=== PATIENT | female | born 1995 | race Caucasian/White ===

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

== ENCOUNTER 2019-01-29 10:16 | Emergency (ER) | payer BC ==
--- NOTE | 2019-01-29 10:20 | ERPHSYRPT ---
- History of Present Illness Time Seen by Provider: 01/29/19 10:18 Source: patient Exam Limitations: no limitations Physician History: 23-year-old female at 8 weeks as of tomorrow presenting with nausea and vomiting states this has been a problem for several weeks Is not losing weight States last night it was uncontrolled and she had persistent vomiting throughout the evening She denies any abdominal pain vaginal bleeding lots of fluids diarrhea or fevers Patient states her manager community development gave her a prescription for an antiemetic 2 weeks ago but her insurance will not cover the medications so she has had nothing to take PMH: the patient denies chronic medical history Social:the patient denies tobacco Allergies/Adverse Reactions: No Known Drug Allergies Allergy (Verified 01/29/19 10:32) Hx Tetanus, Diphtheria Vaccination/Date Given: Yes Hx Influenza Vaccination/Date Given: No Hx Pneumococcal Vaccination/Date Given: No - Review of Systems Constitutional: No Fever, No Chills Eyes: No Symptoms Ears, Nose, & Throat: No Symptoms Respiratory: No Cough, No Dyspnea Cardiac: No Chest Pain, No Edema, No Syncope Abdominal/Gastrointestinal: Nausea, Vomiting, No Abdominal Pain, No Diarrhea, No Constipation Genitourinary Symptoms: Other (no vaginal bleeding or vaginal discharge), No Dysuria Musculoskeletal: No Back Pain, No Neck Pain Skin: No Rash Neurological: No Dizziness, No Focal Weakness, No Sensory Changes Psychological: No Symptoms Endocrine: No Symptoms All Other Systems: Reviewed and Negative - Past Medical History Pertinent Past Medical History: No Neurological History: No Pertinent History ENT History: No Pertinent History Cardiac History: No Pertinent History Respiratory History: No Pertinent History Endocrine Medical History: No Pertinent History Musculoskeletal History: No Pertinent History GI Medical History: No Pertinent History History: No Pertinent History Psycho-Social History: No Pertinent History - Past Surgical History Past Surgical History: Yes Neuro Surgical History: No Pertinent History Cardiac: No Pertinent History Respiratory: No Pertinent History Gastrointestinal: No Pertinent History Genitourinary: No Pertinent History Musculoskeletal: No Pertinent History Female Surgical History: No Pertinent History Other Surgical History: TONSILECTOMY - Social History Smoking Status: Never smoker Exposure to second hand smoke: No Alcohol Use: None Drug Use: none Patient Lives Alone: No Significant Family History: no pertinent family hx - Nursing Vital Signs Nursing Vital Signs: Initial Vital Signs Temperature 99.1 F 01/29/19 10:23 Pulse Rate 102 H 01/29/19 10:23 Respiratory Rate 20 01/29/19 10:23 Blood Pressure 133/88 01/29/19 10:23 Pain Scale Pain Intensity 0 - Physical Exam General Appearance: no apparent distress, alert Eye Exam: PERRL/EOMI, eyes nml inspection Ears, Nose, Throat Exam: normal ENT inspection, TMs normal, pharynx normal, moist mucous membranes Neck Exam: normal inspection, non-tender, supple, full range of motion Respiratory Exam: normal breath sounds, lungs clear, No respiratory distress Cardiovascular Exam: regular rate/rhythm, normal heart sounds, normal peripheral pulses Gastrointestinal/Abdomen Exam: soft, normal bowel sounds, No tenderness, No mass Back Exam: normal inspection, normal range of motion, No CVA tenderness, No vertebral tenderness Extremity Exam: normal inspection, normal range of motion, pelvis stable Neurologic Exam: alert, oriented x 3, cooperative, normal mood/affect, nml cerebellar function, nml station & gait, sensation nml, No motor deficits Skin Exam: normal color, warm, dry, No rash Lymphatic Exam: No adenopathy SpO2 Interpretation: normal O2 Delivery: Room Air Ordered Tests: Active Orders 24 hr Category Date Time Status CULTURE,URINE Stat Lab 01/29/19 10:23 Received UA W/RFX UR CULTURE Stat Lab 01/29/19 10:23 Completed Medication Summary Discontinued Medications Generic Name Dose Route Start Last Admin Trade Name Freq PRN Reason Stop Dose Admin Sodium Chloride 1,000 mls @ 999 mls/hr 01/29/19 10:26 01/29/19 10:45 Sodium Chloride 0.9% 1000 Ml IV 01/29/19 11:26 999 mls/hr .Q1H1M STA Administration Sodium Chloride Confirm 01/29/19 10:35 Sodium Chloride 0.9% 1000 Ml Administered 01/29/19 10:36 Dose 1,000 mls @ ud .ROUTE .STK-MED ONE Ondansetron HCl 4 mg 01/29/19 10:25 01/29/19 10:45 Zofran 4 Mg/2 Ml Vial IV 01/29/19 10:26 4 mg STAT ONE Administration Ondansetron HCl Confirm 01/29/19 10:35 Zofran 4 Mg/2 Ml Vial Administered 01/29/19 10:36 Dose 4 mg .ROUTE .STK-MED ONE Lab/Rad Data: Laboratory Results 01/29/19 Range/Units 10:23 Urine Color YELLOW (YELLOW) Urine Appearance CLOUDY (CLEAR) Urine pH 7.0 (5-6) Ur Specific [place] 1.015 (1.005-1.025) Urine Protein NEGATIVE (Negative) Urine Ketones NEGATIVE (NEGATIVE) Urine Blood NEGATIVE (0-5) Matt/ul Urine Nitrite NEGATIVE (NEGATIVE) Urine Bilirubin NEGATIVE (NEGATIVE) Urine Urobilinogen NEGATIVE (0-1) mg/dL Ur Leukocyte Esterase TRACE (NEGATIVE) Urine WBC (Auto) 0-2 (0-5) /HPF Urine RBC (Auto) NONE (0-2) /HPF U Epithel Cells (Auto) MODERATE (FEW) /HPF Urine Bacteria (Auto) FEW (NEGATIVE) /HPF Amorphous Crystals MODERATE (NEGATIVE) /HPF Urine Mucus (Auto) MODERATE (NEGATIVE) /HPF Urine Culture Reflexed YES (NO) Urine Glucose NEGATIVE (NEGATIVE) mg/dL - Progress Progress: unchanged Progress Note: patient feeling well. Nontoxic. Benign abdominal exam. No evidence of acute intra-abdominal process, most likely hyperemesis secondary to . No complications with apparent. Antiemetics given, and fluid bolus provided. Outpatient antiemetic therapy provided, followup with OB recommended. Patient voiced understanding return options at time of discharge. 01/29/19 14:12 - Departure Departure Disposition: Home Clinical Impression: Nausea & vomiting Qualifiers: Vomiting type: unspecified Vomiting Intractability: unspecified Qualified Code( s): R11.2 - Nausea with vomiting, unspecified Condition: Good Critical Care Time: No Referrals: FABIAN WEST [Primary Care Provider] - Instructions: Vomiting -- Adult Prescriptions: Ondansetron ODT 4 MG [Zofran Odt 4 mg] 4 mg PO Q6H PRN PRN 3 Days #6 tab.rapdis PRN Reason: Nausea
[2019-01-29] MEDS ORDERED: Sodium Chloride 0.9% 1000 ML 1,000 ML ONE (10:35)
[2019-01-29] MEDS ORDERED: Zofran 4 MG/2 ML VIAL ONE (10:35)
[2019-01-29] MEDS: Zofran 4 MG/2 ML VIAL IV ONE (10:45)
[2019-01-29] MEDS: Sodium Chloride 0.9% 1000 ML 1,000 ML IV STA (10:45)
[2019-01-29 11:09] VITALS: BP 120/73; O2SAT 100
[2019-01-29 11:18] LABS: Amourphous Crystal MODERATE /HPF (NEGATIVE); Appearance CLOUDY (CLEAR); Bacteria FEW /HPF (NEGATIVE); Bilirubin NEGATIVE (NEGATIVE); Blood NEGATIVE Ery/ul (0-5); Epithelial Cells MODERATE /HPF (FEW); Glucose NEGATIVE (NEGATIVE); Ketones NEGATIVE (NEGATIVE); Leukocyte Esterase TRACE (NEGATIVE); Mucus MODERATE /HPF (NEGATIVE); Nitrite NEGATIVE (NEGATIVE); Protein,Urine Dip NEGATIVE (Negative); Specific Gravity 1.015 (1.005-1.025); Urobilinogen NEGATIVE mg/dL (0-1); WBC 0-2 /HPF (0-5)
[2019-01-29 11:52] VITALS: PULSE 81
== END 2019-01-29 12:05 | disposition home or self-care (01) ==
LOC: ED 10:16
DX: R11.2 Nausea with vomiting, unspecified (principal); Z3A.08 8 weeks gestation of pregnancy
CPT/HCPCS: 36000; 81001; 87086; 96374; 99284; 99291; 99292; J2405

== ENCOUNTER 2019-07-08 19:14 | Observation (INO) | payer BC ==
[2019-07-08 20:49] VITALS: O2SAT 98
[2019-07-08] MEDS ORDERED: Klor Con 10 MEQ PO ONE (21:14)
[2019-07-08 21:17] LABS: Amphetamine,Urine NEGATIVE (NEGATIVE); Barbiturate,Urine NEGATIVE (NEGATIVE); Benzodiazepine,Urine NEGATIVE (NEGATIVE); Cocaine,Urine NEGATIVE (NEGATIVE); Methadone,Urine NEGATIVE (NEGATIVE); Opiate,Urine NEGATIVE (NEGATIVE); PCP,Urine NEGATIVE (NEGATIVE); THC,Urine NEGATIVE (NEGATIVE)
[2019-07-08] MEDS: Lactated Ringers 1,000 ML IV SCH (21:30)
[2019-07-08] MEDS: POTASSIUM CHLORIDE 20 mEq IN WATER 100ML 20 MEQ/100 ML BAG IV SCH ×2 (21:31→23:35)
[2019-07-09 05:50] LABS: ANION GAP 12.4 MEQ/L (5-15); CHLORIDE 106 mmol/L (98-107); Calcium 9.1 mg/dL (8.4-10.2); Carbon Dioxide 24 mmol/L (22-30); Creatinine 1 0.32 mg/dL (0.52-1.04); Glucose 100 mg/dL (74-106); SODIUM 140 mmol/L (137-145)
[2019-07-09 05:52] LABS: BLOOD UREA NITROGEN < 2 mg/dL (7-17)
[2019-07-09 05:53] LABS: Potassium 2.8 mmol/L (3.5-5.1)
[2019-07-09] MEDS ORDERED: Magnesium 1 Gm / 100 Ml D5W*** 100 ML IV ONE (06:01)
[2019-07-09] MEDS: POTASSIUM CHLORIDE 20 mEq IN WATER 100ML 20 MEQ/100 ML BAG IV SCH ×2 (06:11→08:43)
--- NOTE | 2019-07-09 08:33 | PCM.HP.ADD ---
Addendum to History & Physical - History & Physical Addendum Addendum to History & Physical: This certifies that the History & Physical in the electronic chart reflects the current health status of the patient. If there are changes in the H&P these changes/exceptions are listed as follows.
--- NOTE | 2019-07-09 08:39 | PCM.DS ---
Discharge Summary Date of Admission: 07/08/19 19:53 Admitting Physician: SONJA JAIMES Primary Care Provider: SONJA JAIMES Allergies Allergies No Known Drug Allergies Allergy (Verified 07/08/19 20:52) Hospital Summary - Hospital Course Hospital Course: PT is 23 yo at 30w 3d today, admitted directly last night with potassium of 2.4. Upon questioning, she had been having leg paresthesias, which are resolved this morning. Denies vomiting or diarrhea. Jessi po well. Last night her K+ only increased to 2.8 after IV and po potassium. Her Mg was borderline at 1.6 - this a.m. we are repleting the Mg and K+ and will recheck. If both are near nl will d/c pt to home. FHT have been reassuring throughout. Pt does have a WBC count of 20.7 - differential is pending. - Vitals & Intake/Output Vital Signs: Vital Signs Temperature 98.3 F 07/09/19 08:00 Pulse Rate 102 H 07/09/19 08:00 Respiratory Rate 18 07/09/19 08:00 Blood Pressure 118/67 07/09/19 08:00 O2 Sat by Pulse Oximetry 98 07/09/19 04:00 Intake & Output: Intake & Output 07/06/19 07/07/19 07/08/19 07/09/19 11:59 11:59 11:59 11:59 Intake Total 1765 Balance 1765 Weight 67.132 kg - Lab Result Diagrams: 07/09/19 04:10 Lab Results-Last 24 Hrs: Lab Results-Last 24 Hours 07/08/19 07/08/19 07/08/19 Range/Units 20:30 20:30 20:30 Sodium (137-145) mmol/L Potassium 2.6 L* (3.5-5.1) mmol/L Chloride (98-107) mmol/L Carbon Dioxide (22-30) mmol/L Anion Gap (5-15) MEQ/L BUN (7-17) mg/dL Creatinine (0.52-1.04) mg/dL Estimated GFR ML/MIN Glucose (74-106) mg/dL Calcium (8.4-10.2) mg/dL Magnesium 1.6 (1.6-2.3) mg/dL Urine Opiates Level NEGATIVE (NEGATIVE) Ur Methadone NEGATIVE (NEGATIVE) Urine Barbiturates NEGATIVE (NEGATIVE) Ur Phencyclidine (PCP) NEGATIVE (NEGATIVE) Urine Amphetamine NEGATIVE (NEGATIVE) U Benzodiazepine Level NEGATIVE (NEGATIVE) Urine Cocaine NEGATIVE (NEGATIVE) Urine Marijuana (THC) NEGATIVE (NEGATIVE) 07/09/19 07/09/19 Range/Units 04:10 04:10 Sodium 140 (137-145) mmol/L Potassium 2.8 L* (3.5-5.1) mmol/L Chloride 106 (98-107) mmol/L Carbon Dioxide 24 (22-30) mmol/L Anion Gap 12.4 (5-15) MEQ/L BUN < 2 L (7-17) mg/dL Creatinine 0.32 L (0.52-1.04) mg/dL Estimated GFR > 60.0 ML/MIN Glucose 100 (74-106) mg/dL Calcium 9.1 (8.4-10.2) mg/dL Magnesium 1.6 (1.6-2.3) mg/dL Urine Opiates Level (NEGATIVE) Ur Methadone (NEGATIVE) Urine Barbiturates (NEGATIVE) Ur Phencyclidine (PCP) (NEGATIVE) Urine Amphetamine (NEGATIVE) U Benzodiazepine Level (NEGATIVE) Urine Cocaine (NEGATIVE) Urine Marijuana (THC) (NEGATIVE) Discharge Exam General Appearance: no apparent distress, alert Neurologic Exam: oriented x 3, cooperative Eye Exam: eyes nml inspection Ears, Nose, Throat Exam: moist mucous membranes Neck Exam: normal inspection Respiratory Exam: normal breath sounds, lungs clear, No crackles/rales, No rhonchi, No wheezing Cardiovascular Exam: regular rate/rhythm, normal heart sounds, No murmur Gastrointestinal/Abdomen Exam: other (gravid) Skin Exam: normal color, warm, dry, No rash Final Diagnosis/Problem List - Final Discharge Diagnosis/Problem (1) Hypokalemia Current Visit: Yes Status: Acute Assessment & Plan: Unsure the etiology, but repleting Mg and K now. Will send her home on po supplements and recheck on Friday (3d). Code(s): E87.6 - HYPOKALEMIA (2) Current Visit: Yes Status: Chronic Assessment & Plan: stable. Code(s): Z34.90 - ENCNTR FOR SUPRVSN OF NORMAL , UNSP, UNSP TRIMESTER - Discharge Disposition: Home, Self-Care Condition: Stable Prescriptions: No Action Ondansetron ODT 4 MG [Zofran Odt 4 mg] 4 mg PO Q6H PRN PRN 3 Days #6 tab.rapdis PRN Reason: Nausea Vits W-Ca,Fe,FA(<1Mg) [] 1 tab PO DAILY Ferrous Sulfate 325 mg PO DAILY Aspirin 81 gm Chew [Baby Aspirin 81 mg Chew] 81 tab PO DAILY Follow up with: SONJA JAIMES [Primary Care Provider] - 1 Week
[2019-07-09] MEDS: Lactated Ringers 1,000 ML IV SCH (09:16)
[2019-07-09] MEDS ORDERED: ROCEPHIN 1 Gm-D5w 50 ml Bag** 1 G/50 ML IVPB IV ONE (14:00)
[2019-07-09 14:12] LABS: MAGNESIUM 1.7 mg/dL (1.6-2.3)
[2019-07-09 14:24] LABS: Potassium 2.9 mmol/L (3.5-5.1)
[2019-07-09] MEDS ORDERED: Klor Con 10 MEQ PO ONE (14:49)
[2019-07-09 20:06] VITALS: BP 125/82; PULSE 100
== END 2019-07-09 20:05 | disposition home or self-care (01) ==
LOC: OB 19:53
PROVIDERS: ADMIT Family Medicine; ATTEND Family Medicine
DX: O26.893 Other specified pregnancy related conditions, third trimester (principal); Z3A.30 30 weeks gestation of pregnancy; E87.6 Hypokalemia
CPT/HCPCS: 36415; 80048; 80307; 83735; 84132; 93012; G0378; J0696; J3475; J3480; A9270-GY

== ENCOUNTER 2019-08-11 09:58 | Observation (INO) | payer BC, OTHER ==
[2019-08-11 10:12] LABS: Appearance CLEAR (CLEAR); Bilirubin NEGATIVE (NEGATIVE); Dipstick done @ ? LFM; Glucose NEGATIVE (NEGATIVE); Ketones NEGATIVE (NEGATIVE); Nitrite NEGATIVE (NEGATIVE); Protein,Urine Dip NEGATIVE (Negative); RBC TRACE-INTACT Ery/ul (0-5); Specific Gravity 1.015 (1.005-1.025); Urobilinogen 0.2 mg/dL (0-1)
[2019-08-11 11:49] LABS: ALBUMIN 3.5 g/dL (3.5-5.0); ALKALINE PHOSPHATASE 145 U/L (38-126); ANION GAP 11.4 MEQ/L (5-15); CHLORIDE 103 mmol/L (98-107); Calcium 8.7 mg/dL (8.4-10.2); Carbon Dioxide 24 mmol/L (22-30); Creatinine 1 0.29 mg/dL (0.52-1.04); Glucose 91 mg/dL (74-106); MAGNESIUM 1.6 mg/dL (1.6-2.3); Potassium 3.1 mmol/L (3.5-5.1); SGOT/AST 20 U/L (14-36); SGPT/ALT 9 U/L (0-35); SODIUM 136 mmol/L (137-145); Total Protein 6.8 g/dL (6.3-8.2); Uric Acid 3.1 mg/dL (2.6-6.0)
[2019-08-11 11:54] LABS: BLOOD UREA NITROGEN 2 mg/dL (7-17)
[2019-08-11 12:03] VITALS: O2SAT 98
[2019-08-11 13:21] LABS: Absolute Neutrophil Ct (ANC) 10.08 (1.4-6.9); BASOPHIL % 0.3 % (0.0-0.4); Basophil (Absolute #) 0.04 (0-0.4); Eosinophil % 1.2 % (0.00-5.0); Eosinophil (Absolute #) 0.17 (0-0.5); Hematocrit 33.7 % (35-47); Hemoglobin 10.8 gm/dl (12.0-16.0); Lymphocyte (Absolute #) 1.87 (1.0-4.6); Lymphocytes % 13.5 % (24.0-44.0); Mean Cell Volume 91.1 fl (78-100); Mean Corpuscular Hemoglobin 29.2 pg (26-32); Mean Platelet Volume 10.3 fl (7.5-11.0); Monocyte (Absolute #) 1.69 (0.0-1.3); Monocytes % 12.2 % (0.0-12.0); Neutrophil % 72.8 % (36.0-66.0); Platelet Count 429 K/mm3 (150-450); Red Cell Distribution Width 14.3 % (11.5-14.0); White Blood Count 13.9 K/mm3 (4.0-10.5)
[2019-08-11 15:21] LABS: Slide Review 1 YES
[2019-08-11 16:01] VITALS: BP 132/87; PULSE 91
--- NOTE | 2019-08-11 22:21 | XRAY ---
Exam: Limited OB ultrasound from 08/11/2019. Comparison: OB ultrasound examination from 07/29/2019. Indication: Amniotic fluid index, well-being. Findings: The amniotic fluid index measured 12.50 cm which is within normal limits for this third trimester . Prior amniotic fluid index measured 17.2 cm on 07/29/2019. Impression: 1. As above.
== END 2019-08-11 14:45 | disposition home or self-care (01) ==
LOC: CLIN-LAKE 09:58 → OB 10:30
PROVIDERS: ADMIT Family Medicine; ATTEND Family Medicine
DX: Z34.03 Encounter for supervision of normal first pregnancy, third trimester (principal)
CPT/HCPCS: 36415; 59025; 76815; 80053; 81003; 83735; 84550; 85025; G0378

== ENCOUNTER 2019-08-18 09:10 | Inpatient (IN) | payer OTHER ==
[2019-08-18] MEDS ORDERED: BRETHINE 1 MG/ML SQ PRN (15:46)
[2019-08-18] MEDS ORDERED: Cervidil 10 MG VAG SCH ×2 (16:00→22:00)
[2019-08-18] MEDS ORDERED: Celestone Soluspan 6MG/ML IM SCH (16:00)
[2019-08-18 16:05] LABS: Hematocrit 33.3 % (35-47); Hemoglobin 10.6 gm/dl (12.0-16.0); Mean Corpuscular Hemoglobin 29.3 pg (26-32); Mean Corpuscular Hgb Concent. 31.8 g/dl (32-36); Mean Platelet Volume 10.3 fl (7.5-11.0); Platelet Count 386 K/mm3 (150-450); Red Blood Count 3.62 M/mm3 (4.1-5.4); Red Cell Distribution Width 14.4 % (11.5-14.0); White Blood Count 14.5 K/mm3 (4.0-10.5)
[2019-08-18 16:16] LABS: ALBUMIN 3.5 g/dL (3.5-5.0); ALKALINE PHOSPHATASE 133 U/L (38-126); ANION GAP 14.3 MEQ/L (5-15); CHLORIDE 104 mmol/L (98-107); Calcium 9.2 mg/dL (8.4-10.2); Carbon Dioxide 22 mmol/L (22-30); Creatinine 1 0.34 mg/dL (0.52-1.04); Glucose 129 mg/dL (74-106); Potassium 3.3 mmol/L (3.5-5.1); SGOT/AST 22 U/L (14-36); SGPT/ALT 11 U/L (0-35); SODIUM 137 mmol/L (137-145); Total Protein 6.6 g/dL (6.3-8.2); Uric Acid 3.5 mg/dL (2.6-6.0)
[2019-08-18 16:23] LABS: BLOOD UREA NITROGEN 2 mg/dL (7-17)
[2019-08-18 17:34] LABS: Amphetamine,Urine NEGATIVE (NEGATIVE); Barbiturate,Urine NEGATIVE (NEGATIVE); Benzodiazepine,Urine NEGATIVE (NEGATIVE); Cocaine,Urine NEGATIVE (NEGATIVE); Methadone,Urine NEGATIVE (NEGATIVE); Opiate,Urine NEGATIVE (NEGATIVE); PCP,Urine NEGATIVE (NEGATIVE); THC,Urine NEGATIVE (NEGATIVE)
[2019-08-18 20:33] LABS: Absolute Neutrophil Ct (ANC) 11.57 (1.4-6.9)
[2019-08-18 20:34] LABS: Lymphocytes 11 % (24-44); Monocyte 9 % (0.0-12.0); Neutrophils 80 % (36.0-66.0); Platelet Estimate NORMAL (NORMAL); Total Cells Counted 100
[2019-08-19] MEDS: Lactated Ringers 1,000 ML IV SCH ×3 (05:09→23:47)
[2019-08-19] MEDS ORDERED: OMNIPEN 2 GM ONE (05:35)
[2019-08-19] MEDS ORDERED: Sodium Chloride 100ML MINI-BAG PLUS 100 ML IV ONE (05:35)
[2019-08-19] MEDS ORDERED: TYLENOL EXTRA STRENGTH 500 MG PO PRN (06:30)
[2019-08-19] MEDS ORDERED: PITOCIN 30 UNITS/ LR 500 ML 500 ML IV SCH ×2 (06:30→16:00)
[2019-08-19] MEDS ORDERED: OMNIPEN 2 GM*** 2 G in Sodium Chloride 100ML MINI-BAG PLUS 100 ML IV ONE (06:30)
[2019-08-19] MEDS: OMNIPEN 1 GM*** 1 GM in Sodium Chloride 100ML MINI-BAG PLUS 100 ML IV SCH ×4 (10:00→23:07)
[2019-08-19] MEDS: MAG-OX 400 PO SCH ×2 (10:01→23:12)
[2019-08-19] MEDS: Klor Con 10 MEQ PO SCH ×2 (10:01→23:12)
[2019-08-19] MEDS ORDERED: Marcaine Spinal Ampul IJ ONE (10:37)
[2019-08-19] MEDS ORDERED: SUBLIMAZE 100 MCG/2 ML ONE (10:37)
[2019-08-19] MEDS ORDERED: Ephedrine Sulfate 50 MG/ML IV PRN (10:45)
[2019-08-19] MEDS ORDERED: Lactated Ringers 1,000 ML IV ONE (10:45)
[2019-08-19] MEDS ORDERED: OB EPIDURAL NAROPIN/SUFENTANIL IN NACL EPIDURAL PRN (10:45)
[2019-08-19] MEDS ORDERED: XYLOCAINE 1% HCL 20 ML MDV IJ PRN (15:34)
[2019-08-19] MEDS: Magnesium Sulfate 40 Gm/1000 Ml H2O Premix*** 1,000 ML IV SCH (20:40)
[2019-08-19] MEDS ORDERED: MORPHINE SULFATE 2 MG INJ IV ONE (21:54)
[2019-08-19] MEDS ORDERED: Mylicon 80MG PO PRN (22:14)
[2019-08-19] MEDS ORDERED: LANSINOH 40 GM TOP PRN (22:14)
[2019-08-19] MEDS ORDERED: Dermoplast Spray TP PRN (22:14)
[2019-08-19] MEDS ORDERED: TUCKS TP ONE (23:01)
[2019-08-19] MEDS ORDERED: TUCKS TP PRN (23:04)
[2019-08-19] MEDS: MOTRIN 400 MG PO PRN (23:38)
[2019-08-20] MEDS: NORCO 5/325 MG PO PRN ×3 (01:15→22:21)
[2019-08-20 02:04] VITALS: O2SAT 100
[2019-08-20 04:15] LABS: Hematocrit 32.2 % (35-47); Hemoglobin 10.3 gm/dl (12.0-16.0); Mean Cell Volume 91.7 fl (78-100); Mean Corpuscular Hemoglobin 29.3 pg (26-32); Mean Platelet Volume 10.1 fl (7.5-11.0); Platelet Count 402 K/mm3 (150-450); Red Blood Count 3.51 M/mm3 (4.1-5.4); Red Cell Distribution Width 14.8 % (11.5-14.0)
[2019-08-20 04:19] LABS: ANION GAP 10.7 MEQ/L (5-15); CHLORIDE 105 mmol/L (98-107); Calcium 7.7 mg/dL (8.4-10.2); Carbon Dioxide 23 mmol/L (22-30); Creatinine 1 0.33 mg/dL (0.52-1.04); Glucose 126 mg/dL (74-106); SODIUM 136 mmol/L (137-145)
[2019-08-20 04:24] LABS: White Blood Count 29.3 K/mm3 (4.0-10.5)
[2019-08-20 04:25] LABS: BLOOD UREA NITROGEN < 2 mg/dL (7-17); Potassium 2.9 mmol/L (3.5-5.1)
[2019-08-20] MEDS: MOTRIN 400 MG PO PRN ×2 (05:40→19:58)
[2019-08-20 07:17] LABS: BAND 11 % (0.0-2.0); Lymphocytes 4 % (24-44); Monocyte 11 % (0.0-12.0); Neutrophils 74 % (36.0-66.0); Total Cells Counted 100
[2019-08-20 07:18] LABS: Platelet Estimate NORMAL (NORMAL); Polychromasia RARE
[2019-08-20 07:20] LABS: Absolute Neutrophil Ct (ANC) 24.01 (1.4-6.9)
[2019-08-20] MEDS ORDERED: PHARMACY DOSING REQUIRED: GENTAMICIN IV ONE (07:51)
[2019-08-20] MEDS ORDERED: OMNIPEN 2 GM IV SCH (08:00)
[2019-08-20] MEDS: OMNIPEN 2 GM*** 2 G in Sodium Chloride 100ML MINI-BAG PLUS 100 ML IV SCH ×3 (08:17→20:22)
[2019-08-20] MEDS: GARAMYCIN INJ*** 120 MG in Sodium Chloride 0.9% 50 ML 50 ML IV SCH ×2 (09:01→17:02)
[2019-08-20] MEDS: Colace 100 MG PO SCH ×2 (09:50→22:08)
[2019-08-20] MEDS: Klor Con 10 MEQ PO SCH ×2 (09:50→22:08)
[2019-08-20] MEDS: FERREX 150 PO SCH (09:50)
[2019-08-20] MEDS: MAG-OX 400 PO SCH ×2 (09:50→22:08)
[2019-08-20] MEDS ORDERED: Klor Con 10 MEQ PO ONE (10:00)
[2019-08-20 12:13] LABS: Absolute Neutrophil Ct (ANC) 16.51 (1.4-6.9); BASOPHIL % 0.2 % (0.0-0.4); Basophil (Absolute #) 0.04 (0-0.4); Eosinophil % 0.5 % (0.00-5.0); Eosinophil (Absolute #) 0.11 (0-0.5); Hemoglobin 9.8 gm/dl (12.0-16.0); Lymphocyte (Absolute #) 2.58 (1.0-4.6); Lymphocytes % 11.5 % (24.0-44.0); Mean Corpuscular Hemoglobin 29.1 pg (26-32); Mean Corpuscular Hgb Concent. 31.6 g/dl (32-36); Mean Platelet Volume 9.5 fl (7.5-11.0); Monocyte (Absolute #) 3.23 (0.0-1.3); Monocytes % 14.4 % (0.0-12.0); Neutrophil % 73.4 % (36.0-66.0); Platelet Count 395 K/mm3 (150-450); Red Blood Count 3.37 M/mm3 (4.1-5.4); Red Cell Distribution Width 14.9 % (11.5-14.0); White Blood Count 22.5 K/mm3 (4.0-10.5)
[2019-08-20] MEDS: Lactated Ringers 1,000 ML IV SCH (12:53)
[2019-08-20] MEDS ORDERED: TUCKS TP PRN (13:04)
[2019-08-20 13:41] LABS: Slide Review 1 NO
[2019-08-20] MEDS: Magnesium Sulfate 40 Gm/1000 Ml H2O Premix*** 1,000 ML IV SCH (15:59)
[2019-08-21] MEDS: GARAMYCIN INJ*** 120 MG in Sodium Chloride 0.9% 50 ML 50 ML IV SCH (01:06)
[2019-08-21] MEDS: OMNIPEN 2 GM*** 2 G in Sodium Chloride 100ML MINI-BAG PLUS 100 ML IV SCH ×2 (01:49→09:19)
[2019-08-21] MEDS: Lactated Ringers 1,000 ML IV SCH (01:51)
[2019-08-21] MEDS: MOTRIN 400 MG PO PRN ×3 (03:17→20:41)
[2019-08-21] MEDS: NORCO 5/325 MG PO PRN ×4 (03:18→21:27)
[2019-08-21 03:39] LABS: Hematocrit 30.4 % (35-47); Hemoglobin 9.6 gm/dl (12.0-16.0); Mean Cell Volume 92.1 fl (78-100); Mean Corpuscular Hemoglobin 29.1 pg (26-32); Mean Corpuscular Hgb Concent. 31.6 g/dl (32-36); Mean Platelet Volume 10.1 fl (7.5-11.0); Platelet Count 422 K/mm3 (150-450); White Blood Count 19.1 K/mm3 (4.0-10.5)
[2019-08-21] MEDS ORDERED: TROUGH DRUG LEVELS IJ ONE (08:30)
[2019-08-21] MEDS ORDERED: PEAK DRUG LEVELS IJ ONE (10:00)
[2019-08-21] MEDS: FERREX 150 PO SCH (11:00)
[2019-08-21] MEDS: Colace 100 MG PO SCH ×2 (11:00→21:28)
[2019-08-21] MEDS: Klor Con 10 MEQ PO SCH ×2 (13:57→21:27)
[2019-08-21] MEDS: Augmentin 875-125 Tablet PO SCH ×2 (13:58→21:30)
[2019-08-21] MEDS: MAG-OX 400 PO SCH ×2 (13:58→21:28)
[2019-08-22] MEDS: NORCO 5/325 MG PO PRN ×2 (02:09→06:27)
[2019-08-22] MEDS: MOTRIN 400 MG PO PRN ×2 (03:39→10:39)
[2019-08-22 06:53] LABS: Absolute Neutrophil Ct (ANC) 9.59 (1.4-6.9); BASOPHIL % 0.3 % (0.0-0.4); Basophil (Absolute #) 0.04 (0-0.4); Eosinophil % 2.7 % (0.00-5.0); Eosinophil (Absolute #) 0.41 (0-0.5); Hematocrit 30.4 % (35-47); Hemoglobin 9.4 gm/dl (12.0-16.0); Lymphocyte (Absolute #) 2.93 (1.0-4.6); Lymphocytes % 19.5 % (24.0-44.0); Mean Cell Volume 93.8 fl (78-100); Mean Corpuscular Hgb Concent. 30.9 g/dl (32-36); Mean Platelet Volume 10.1 fl (7.5-11.0); Monocyte (Absolute #) 2.08 (0.0-1.3); Monocytes % 13.8 % (0.0-12.0); Neutrophil % 63.7 % (36.0-66.0); Platelet Count 426 K/mm3 (150-450); Red Blood Count 3.24 M/mm3 (4.1-5.4); Red Cell Distribution Width 14.8 % (11.5-14.0); White Blood Count 15.1 K/mm3 (4.0-10.5)
[2019-08-22 06:59] LABS: ANION GAP 12.7 MEQ/L (5-15); BLOOD UREA NITROGEN 8 mg/dL (7-17); CHLORIDE 103 mmol/L (98-107); Calcium 9.1 mg/dL (8.4-10.2); Carbon Dioxide 25 mmol/L (22-30); Creatinine 1 0.35 mg/dL (0.52-1.04); Glucose 77 mg/dL (74-106); SODIUM 137 mmol/L (137-145)
[2019-08-22 08:55] LABS: Slide Review 1 YES
[2019-08-22 09:05] VITALS: BP 135/82; PULSE 93
--- NOTE | 2019-08-22 10:32 | PCM.DS ---
Discharge Summary Date of Admission: 08/19/19 09:10 Admitting Physician: SONJA JAIMES Primary Care Provider: SONJA JAIMES Allergies Allergies No Known Drug Allergies Allergy (Verified 08/18/19 17:30) Hospital Summary - Hospital Course Hospital Course: Pt was admitted as 23 yo at 36w 1d for IOL due to pre-eclampsia with severe features. She was given cervadil followed by pitocin after AROM. Was treated with ampicillin for GBS unknown status. Delivered vigorous 6lb 14oz girl without complication. During labor, pt was put on Magnesium Sulfate due to elevated blood pressures; she remained on Mg for 36h total. Her bp have mostly been in the 120s-130s systolic, with a high over the past 24-36 h of 152 systolic. Has denied LUIS or visual changes. Pt has a history of hypokalemia and hypomagnesemia this ; is on po Mag ox and potassium. Her most recent potassium (this morning) was wnl. The morning after delivery she had a WBC count of 29,000 so was started on ampicillin and gentamycin for question of chorioamnionitis; pt has been afebrile throughout however. After 24h she was started on po augmentin but will not be sent home on any antibiotics. Pt is out of bed without dizziness. Bleeding is not heavy. She is alternating norco and ibuprofen for pain. She had marked labial edema after delivery (and a midline vaginal laceration repair, second degree) which she states has gone away now. She will be sent home on norco #10 and ibuprofen. She did have a BM this morning. - Vitals & Intake/Output Vital Signs: Vital Signs Temperature 97.9 F 08/22/19 08:30 Pulse Rate 93 H 08/22/19 08:30 Respiratory Rate 18 08/22/19 08:30 Blood Pressure 135/82 08/22/19 08:30 O2 Sat by Pulse Oximetry 100 08/20/19 00:30 Intake & Output: Intake & Output 08/19/19 08/20/19 08/21/19 08/22/19 11:59 11:59 11:59 11:59 Intake Total 1700 6504 8997 2700 Output Total 03525 46606 Balance 9333 -7253 -5417 2700 Weight 74.389 kg - Lab Result Diagrams: 08/22/19 05:05 08/22/19 05:05 Lab Results-Last 24 Hrs: Lab Results-Last 24 Hours 08/22/19 08/22/19 Range/Units 05:05 05:05 WBC 15.1 H (4.0-10.5) K/mm3 RBC 3.24 L (4.1-5.4) M/mm3 Hgb 9.4 L (12.0-16.0) gm/dl Hct 30.4 L (35-47) % MCV 93.8 (78-100) fl MCH 29.0 (26-32) pg MCHC 30.9 L (32-36) g/dl RDW 14.8 H (11.5-14.0) % Plt Count 426 (150-450) K/mm3 MPV 10.1 (7.5-11.0) fl Gran % 63.7 (36.0-66.0) % Eos # (Auto) 0.41 (0-0.5) Absolute Lymphs (auto) 2.93 (1.0-4.6) Absolute Monos (auto) 2.08 H (0.0-1.3) Lymphocytes % 19.5 L (24.0-44.0) % Monocytes % 13.8 H (0.0-12.0) % Eosinophils % 2.7 (0.00-5.0) % Basophils % 0.3 (0.0-0.4) % Absolute Granulocytes 9.59 H (1.4-6.9) Basophils # 0.04 (0-0.4) Sodium 137 (137-145) mmol/L Potassium 4.0 D (3.5-5.1) mmol/L Chloride 103 (98-107) mmol/L Carbon Dioxide 25 (22-30) mmol/L Anion Gap 12.7 (5-15) MEQ/L BUN 8 (7-17) mg/dL Creatinine 0.35 L (0.52-1.04) mg/dL Estimated GFR > 60.0 ML/MIN Glucose 77 (74-106) mg/dL Calcium 9.1 (8.4-10.2) mg/dL Slides for Path Review YES Micro Results-Entire Visit: Microbiology 08/19/19 12:30 Urine Culture - Final Catherized NO GROWTH Discharge Exam General Appearance: no apparent distress, alert Neurologic Exam: oriented x 3, cooperative, other (pat refl brisk bilat; 1 beat clonus bilat) Eye Exam: eyes nml inspection Ears, Nose, Throat Exam: moist mucous membranes Respiratory Exam: normal breath sounds, lungs clear, No crackles/rales, No rhonchi, No wheezing Cardiovascular Exam: regular rate/rhythm, normal heart sounds, No murmur Gastrointestinal/Abdomen Exam: soft, normal bowel sounds, other (fundus firm inferior to umbilicus) Extremity Exam: swelling (pretibial 1+ edema bilat) Final Diagnosis/Problem List - Final Discharge Diagnosis/Problem (1) Spontaneous vaginal delivery Current Visit: Yes Status: Acute Assessment & Plan: PPD #3, doing well, home today. Code(s): O80 - ENCOUNTER FOR FULL-TERM UNCOMPLICATED DELIVERY (2) Pre-eclampsia Current Visit: Yes Status: Acute Assessment & Plan: Improved; still having some occasional elevated BP. I let pt and SO know that if any BP > 160 systolic or >100 diastolic they need to call me CALI. Code(s): O14.90 - UNSPECIFIED PRE-ECLAMPSIA, UNSPECIFIED TRIMESTER (3) Hypomagnesemia Current Visit: Yes Status: Chronic Assessment & Plan: Seeing Dr. Dangelo next month. Code(s): E83.42 - HYPOMAGNESEMIA (4) Hypokalemia Current Visit: No Status: Chronic Code(s): E87.6 - HYPOKALEMIA - Discharge Disposition: Home, Self-Care Condition: Good Prescriptions: New Ibuprofen 800 mg PO TID PRN #35 tablet PRN Reason: Pain Potassium Chloride 10 Meq Tab* [Klor Con 10 MEQ] 40 meq PO BID #60 tab Hydrocodone/APAP 5-325 Tab^^^ [[place] 5-325 Tablet^^^] 1 each PO Q6H PRN #10 tablet MDD 4 PRN Reason: Severe Pain Continue Ondansetron ODT 4 MG [Zofran Odt 4 mg] 4 mg PO Q6H PRN PRN 3 Days #6 tab.rapdis PRN Reason: Nausea Vits W-Ca,Fe,FA(<1Mg) [] 1 tab PO DAILY Ferrous Sulfate 325 mg PO BID Aspirin 81 gm Chew [Baby Aspirin 81 mg Chew] 81 tab PO DAILY Magnesium Oxide 400 mg PO BID Discontinued Potassium Chloride 10 Meq Tab* [Klor Con 10 MEQ] 20 meq PO BID Additional Instructions: Call or go to ER/OB unit for any systolic (upper number) BP 160 or greater, or diastolic (lower number) 100 or greater, or if any severe headache, seeing spots , or severe pain in the right upper quadrant. Follow up with: SONJA JAIMES [Primary Care Provider] - 1 Week Forms: OB Discharge Instructions
[2019-08-22] MEDS: MAG-OX 400 PO SCH (10:39)
[2019-08-22] MEDS: Augmentin 875-125 Tablet PO SCH (10:40)
[2019-08-22] MEDS: Klor Con 10 MEQ PO SCH (10:40)
[2019-08-22] MEDS: Colace 100 MG PO SCH (10:41)
[2019-08-22] MEDS: FERREX 150 PO SCH (10:41)
[2019-08-22 12:12] LABS: ALBUMIN 3.6 g/dL (3.5-5.0); BILIRUBIN,TOTAL 0.5 mg/dL (0.2-1.3); Direct Bilirubin 0.1 mg/dL (0.0-0.4); Total Protein 6.7 g/dL (6.3-8.2)
== END 2019-08-22 12:50 | disposition home or self-care (01) | DRG 807 ==
LOC: OB 09:10 → OBSVTOIN 08-19 09:10
PROVIDERS: ADMIT Family Medicine; ATTEND Family Medicine
PROC: 10E0XZZ Delivery of Products of Conception, External Approach (ICD-10-PCS; principal; 2019-08-19)
PROC: 0KQM0ZZ Repair Perineum Muscle, Open Approach (ICD-10-PCS; 2019-08-19)
DX: O14.14 Severe pre-eclampsia complicating childbirth (principal); Z37.0 Single live birth; O71.4 Obstetric high vaginal laceration alone; Z3A.36 36 weeks gestation of pregnancy; D72.829 Elevated white blood cell count, unspecified; D64.9 Anemia, unspecified; E87.6 Hypokalemia; E83.42 Hypomagnesemia
CPT/HCPCS: 36415; 80048; 80053; 80076; 80170; 80307; 81003; 83735; 84132; 84550; 85025; 85027; 87086; 96372; G0378; J0290; J0702; J1580; J2270; J2590; J3010; A9270-GY

== ENCOUNTER 2020-07-29 00:29 | Emergency (ER) | payer OTHER ==
[2020-07-29 01:07] VITALS: BP 132/90; PULSE 99; O2SAT 97
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
== END 2020-07-29 01:34 | disposition home or self-care (01) ==
LOC: ED 00:29
DX: T74.11XA Adult physical abuse, confirmed, initial encounter (principal); S20.419A Abrasion of unspecified back wall of thorax, initial encounter; R10.9 Unspecified abdominal pain; S50.811A Abrasion of right forearm, initial encounter; Z3A.09 9 weeks gestation of pregnancy; Y04.0XXA Assault by unarmed brawl or fight, initial encounter; Y93.9 Activity, unspecified; Y92.89 Other specified places as the place of occurrence of the external cause
CPT/HCPCS: 99283

== ENCOUNTER 2020-08-02 20:53 | Emergency (ER) | payer OTHER ==
[2020-08-02 21:33] VITALS: O2SAT 99
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
[2020-08-03 00:19] VITALS: BP 110/66; PULSE 71
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
== END 2020-08-03 00:26 | disposition home or self-care (01) ==
LOC: ED 20:53
DX: S73.101A Unspecified sprain of right hip, initial encounter (principal); S20.212A Contusion of left front wall of thorax, initial encounter; Y04.0XXA Assault by unarmed brawl or fight, initial encounter; Z3A.09 9 weeks gestation of pregnancy
CPT/HCPCS: 71100; 73502; 99283

== ENCOUNTER 2021-02-21 14:19 | Observation (INO) | payer OTHER | END 2021-02-21 15:20 | disposition home or self-care (01) | LOC: OB 14:19 | PROVIDERS: ADMIT Obstetrics & Gynecology; ATTEND Obstetrics & Gynecology | DX: Z34.83 Encounter for supervision of other normal pregnancy, third trimester (principal); Z3A.38 38 weeks gestation of pregnancy | CPT/HCPCS: 84112; G0378 ==

== ENCOUNTER 2021-02-23 22:36 | Inpatient (IN) | payer OTHER ==
[2021-02-24] MEDS ORDERED: Zofran 4 MG/2 ML VIAL IV PRN (06:00)
[2021-02-24] MEDS ORDERED: OB EPIDURAL NAROPIN/SUFENTANIL IN NACL EPIDURAL PRN ×2 (06:00→07:00)
[2021-02-24] MEDS ORDERED: Ephedrine Sulfate 50 MG/ML IV PRN (06:00)
[2021-02-24] MEDS ORDERED: Lactated Ringers 1,000 ML IV ONE ×2 (06:00→07:00)
[2021-02-24] MEDS ORDERED: TYLENOL EXTRA STRENGTH 500 MG PO PRN (06:00)
[2021-02-24 07:09] LABS: Hematocrit 31.4 % (35-47); Hemoglobin 9.1 gm/dl (12.0-16.0); Mean Cell Volume 81.1 fl (78-100); Mean Corpuscular Hemoglobin 23.5 pg (26-32); Mean Platelet Volume 9.8 fl (7.5-11.0); Platelet Count 438 K/mm3 (150-450); Red Blood Count 3.87 M/mm3 (4.1-5.4); Red Cell Distribution Width 15.6 % (11.5-14.0); White Blood Count 13.4 K/mm3 (4.0-10.5)
[2021-02-24] MEDS ORDERED: FENTANYL 2 MCG-BUPIV 0.125%-NS 250 ML Epidur 250 ML EPIDURAL SCH (07:30)
[2021-02-24 07:44] LABS: ABO TYPING AB; Antibody Screen NEGATIVE (NEGATIVE); RH TYPING POSITIVE
[2021-02-24] MEDS ORDERED: XYLOCAINE 1% HCL 20 ML MDV IJ PRN (08:00)
[2021-02-24] MEDS ORDERED: BRETHINE 1 MG/ML SQ PRN (08:00)
[2021-02-24] MEDS ORDERED: PITOCIN 30 UNITS/ LR 500 ML 30 UNITS/500 ML PLAST..BAG IV SCH ×2 (08:00)
[2021-02-24 08:05] LABS: Eosinophil 1 % (0.00-3.0); Lymphocytes 19 % (24-44); Monocyte 3 % (0.0-12.0); Neutrophils 77 % (36.0-66.0); Total Cells Counted 100
[2021-02-24 08:06] LABS: Hypochromia 1+; Platelet Estimate NORMAL (NORMAL); Polychromasia 1+
[2021-02-24] MEDS: Lactated Ringers 1,000 ML IV SCH ×2 (08:31→21:53)
[2021-02-24 09:30] LABS: Amphetamine,Urine NEGATIVE (NEGATIVE); Barbiturate,Urine NEGATIVE (NEGATIVE); Benzodiazepine,Urine NEGATIVE (NEGATIVE); Cocaine,Urine NEGATIVE (NEGATIVE); Methadone,Urine NEGATIVE (NEGATIVE); Opiate,Urine NEGATIVE (NEGATIVE); PCP,Urine NEGATIVE (NEGATIVE); THC,Urine NEGATIVE (NEGATIVE)
[2021-02-24] MEDS ORDERED: Colace 100 MG ONE (19:32)
[2021-02-24] MEDS ORDERED: Dermoplast Spray ONE (19:32)
[2021-02-24] MEDS ORDERED: LANSINOH 40 GM ONE (19:32)
[2021-02-24] MEDS ORDERED: TUCKS TP ONE (19:32)
[2021-02-24] MEDS ORDERED: MOTRIN 400 MG ONE (19:32)
[2021-02-24] MEDS ORDERED: LANSINOH 40 GM TOP PRN (19:43)
[2021-02-24] MEDS ORDERED: Anucort-HC SUPPOSITORY PR PRN (19:43)
[2021-02-24] MEDS ORDERED: Dulcolax 10 MG SUPP PR PRN (19:43)
[2021-02-24] MEDS ORDERED: CORTISONE 1% CREAM TP PRN (19:43)
[2021-02-24] MEDS ORDERED: Mylicon 80MG PO PRN (19:43)
[2021-02-24] MEDS: TUCKS TP PRN (19:49)
[2021-02-24] MEDS: MOTRIN 400 MG PO PRN (19:49)
[2021-02-24] MEDS: Colace 100 MG PO SCH ×2 (19:49→21:41)
[2021-02-24] MEDS: Dermoplast Spray TP PRN (19:50)
[2021-02-25] MEDS: MOTRIN 400 MG PO PRN ×2 (05:04→22:04)
[2021-02-25 07:07] LABS: Absolute Neutrophil Ct (ANC) 10.77 (1.4-6.9); BASOPHIL % 0.3 % (0.0-0.4); Basophil (Absolute #) 0.04 (0-0.4); Eosinophil % 1.3 % (0.00-5.0); Eosinophil (Absolute #) 0.19 (0-0.5); Hematocrit 27.6 % (35-47); Hemoglobin 7.8 gm/dl (12.0-16.0); Lymphocyte (Absolute #) 2.14 (1.0-4.6); Lymphocytes % 14.2 % (24.0-44.0); Mean Cell Volume 81.4 fl (78-100); Mean Corpuscular Hgb Concent. 28.3 g/dl (32-36); Mean Platelet Volume 9.6 fl (7.5-11.0); Monocyte (Absolute #) 1.94 (0.0-1.3); Monocytes % 12.9 % (0.0-12.0); Neutrophil % 71.3 % (36.0-66.0); Platelet Count 353 K/mm3 (150-450); Red Blood Count 3.39 M/mm3 (4.1-5.4); Red Cell Distribution Width 15.8 % (11.5-14.0); White Blood Count 15.1 K/mm3 (4.0-10.5)
[2021-02-25 08:39] LABS: Slide Review 1 YES
[2021-02-25] MEDS: Colace 100 MG PO SCH ×2 (09:44→22:04)
[2021-02-25] MEDS ORDERED: FERREX 150 PO SCH (10:00)
--- NOTE | 2021-02-25 10:22 | PCM.NOTE ---
Date and Time: 02/25/21 1020 Subjective Assessment: PPD 1 PT RESTING IN BED AND DOING WELL VSS AFEBRILE ABD; SOFT UTERUS; FIRM' LOCHIA; MILD A/P SP PPD 1 WILL ANTICIPATE DISCHARGE TOMORROW FU OFFICE IN 3 WKS. OBJECTIVE DATA Vital Signs: Vital Signs - 24 hr Temp Pulse Resp BP BP Pulse Ox 02/25/21 08:00 98.3 F 79 18 115/76 98 02/25/21 04:00 98 F 81 17 111/70 98 02/25/21 00:00 98 F 84 17 109/64 97 02/24/21 20:00 98 F 101 H 17 119/74 98 02/24/21 14:45 98.2 F 94 H 18 128/71 02/24/21 14:15 98.2 F 108 H 18 124/66 02/24/21 14:00 101 H 18 127/67 02/24/21 13:45 97 H 18 128/63 02/24/21 13:30 123 H 18 124/66 02/24/21 13:04 98.2 F 94 H 18 02/24/21 13:00 98.2 F 111 H 18 137/82 02/24/21 12:45 98.2 F 112 H 18 128/83 98 02/24/21 12:30 98.2 F 110 H 18 137/79 98 02/24/21 12:15 98.2 F 110 H 18 137/79 98 02/24/21 12:00 98.2 F 94 H 18 133/84 98 02/24/21 11:30 98.2 F 100 H 18 133/89 98 02/24/21 11:29 98.2 F 94 H 18 122/69 98 02/24/21 11:00 98.2 F 85 18 122/73 98 02/24/21 10:45 98.2 F 85 18 122/73 98 02/24/21 10:30 98.2 F 97 H 18 122/69 98 Pain Assessment - Last Documented Pain Intensity [Bilateral 1 Lower] Pain Intensity 0 Pain Scale Used 0-10 Pain Scale Intake and Output: Intake & Output 02/22/21 02/23/21 02/24/21 02/25/21 11:59 11:59 11:59 11:59 Intake Total 980 Balance 980 Weight 165 kg Lab Results: Lab Results-Last 24 Hours 02/25/21 Range/Units 06:50 WBC 15.1 H (4.0-10.5) K/mm3 RBC 3.39 L (4.1-5.4) M/mm3 Hgb 7.8 L (12.0-16.0) gm/dl Hct 27.6 L (35-47) % MCV 81.4 (78-100) fl MCH 23.0 L (26-32) pg MCHC 28.3 L (32-36) g/dl RDW 15.8 H (11.5-14.0) % Plt Count 353 (150-450) K/mm3 MPV 9.6 (7.5-11.0) fl Gran % 71.3 H (36.0-66.0) % Eos # (Auto) 0.19 (0-0.5) Absolute Lymphs (auto) 2.14 (1.0-4.6) Absolute Monos (auto) 1.94 H (0.0-1.3) Lymphocytes % 14.2 L (24.0-44.0) % Monocytes % 12.9 H (0.0-12.0) % Eosinophils % 1.3 (0.00-5.0) % Basophils % 0.3 (0.0-0.4) % Absolute Granulocytes 10.77 H (1.4-6.9) Basophils # 0.04 (0-0.4) Slides for Path Review YES Assessment/Plan (1) Vaginal delivery Current Visit: Yes Status: Acute Code(s): O80 - ENCOUNTER FOR FULL-TERM UNCOMPLICATED DELIVERY
--- NOTE | 2021-02-25 10:25 | PCM.DS ---
Discharge Summary Date of Admission: 02/24/21 06:29 Admitting Physician: KATHRYN DICKENS DO Consults: Consults on Case 02/24/21 08:00 Notify Anesthesia Provider PRN 02/24/21 20:00 Notify Physician ROUTINE 02/25/21 08:52 Navigation ONCE Primary Care Provider: SONJA REYES Allergies Allergies No Known Drug Allergies Allergy (Verified 02/24/21 06:42) Hospital Summary - Hospital Course Hospital Course: PT ADMITTED ON FEB 24 FOR PITOCIN INDUCTION AND DELIVERED LIVE BABY GIRL WITHOUT COMPLICATION. DURING PERIOD DID WELL AND WAS NOTED HAVING DECREASED HGB 7.8 FROM 9.1 ON ADMISSION. STATES FEELING WELL AND WAS ADVISED TO TAKE IRON SUPPLEMENTATION UPON DISCHARGE. ALL QUESTIONS ANSWERED TO HER SATISFACTION. PT DENIES COMPLAINTS. - Vitals & Intake/Output Vital Signs: Vital Signs Temperature 98.3 F 02/25/21 08:00 Pulse Rate 79 02/25/21 08:00 Respiratory Rate 18 02/25/21 08:00 Blood Pressure 115/76 02/25/21 08:00 O2 Sat by Pulse Oximetry 98 02/25/21 08:00 Intake & Output: Intake & Output 02/22/21 02/23/21 02/24/21 02/25/21 11:59 11:59 11:59 11:59 Intake Total 980 Balance 980 Weight 165 kg - Lab Result Diagrams: 02/25/21 06:50 Lab Results-Last 24 Hrs: Lab Results-Last 24 Hours 02/25/21 Range/Units 06:50 WBC 15.1 H (4.0-10.5) K/mm3 RBC 3.39 L (4.1-5.4) M/mm3 Hgb 7.8 L (12.0-16.0) gm/dl Hct 27.6 L (35-47) % MCV 81.4 (78-100) fl MCH 23.0 L (26-32) pg MCHC 28.3 L (32-36) g/dl RDW 15.8 H (11.5-14.0) % Plt Count 353 (150-450) K/mm3 MPV 9.6 (7.5-11.0) fl Gran % 71.3 H (36.0-66.0) % Eos # (Auto) 0.19 (0-0.5) Absolute Lymphs (auto) 2.14 (1.0-4.6) Absolute Monos (auto) 1.94 H (0.0-1.3) Lymphocytes % 14.2 L (24.0-44.0) % Monocytes % 12.9 H (0.0-12.0) % Eosinophils % 1.3 (0.00-5.0) % Basophils % 0.3 (0.0-0.4) % Absolute Granulocytes 10.77 H (1.4-6.9) Basophils # 0.04 (0-0.4) Slides for Path Review YES Final Diagnosis/Problem List - Final Discharge Diagnosis/Problem (1) Vaginal delivery Current Visit: Yes Status: Acute Code(s): O80 - ENCOUNTER FOR FULL-TERM UNCOMPLICATED DELIVERY - Discharge Disposition: Home, Self-Care Condition: Stable Prescriptions: No Action Vits W-Ca,Fe,FA(<1Mg) [] 1 tab PO DAILY Nitrofurantoin Macro 100 mg [Macrobid 100MG Capsule] 100 mg PO BID Aspirin EC 81 mg [Ecotrin 81 mg] 81 mg PO BID Follow up with: SONJA REYES [Primary Care Provider] - KATHRYN DICKENS DO [ACTIVE STAFF] - 3 weeks
[2021-02-25] MEDS ORDERED: Adacel Vial IM ONE (13:00)
[2021-02-26] MEDS: TUCKS TP PRN (00:36)
[2021-02-26] MEDS: Dermoplast Spray TP PRN (02:49)
[2021-02-26 03:03] VITALS: O2SAT 97
[2021-02-26 04:00] LABS: HBsAg Screen Negative (Negative)
[2021-02-26 08:08] VITALS: BP 112/75; PULSE 88
== END 2021-02-26 11:10 | disposition home or self-care (01) | DRG 807 ==
LOC: OB 02-24 06:29 → UNDOADMOB 02-24 06:29 → OBSVTOIN 02-24 06:29
PROVIDERS: ADMIT Obstetrics & Gynecology; ATTEND Obstetrics & Gynecology
PROC: 0HQ9XZZ Repair Perineum Skin, External Approach (ICD-10-PCS; principal; 2021-02-24)
PROC: 10E0XZZ Delivery of Products of Conception, External Approach (ICD-10-PCS; 2021-02-24)
DX: O80 Encounter for full-term uncomplicated delivery (principal); Z37.0 Single live birth; Z3A.39 39 weeks gestation of pregnancy; D64.9 Anemia, unspecified
CPT/HCPCS: 36415; 59409; 80307; 85025; 86850; 86900; 86901; 87340; 90715; 96372; G0378; J2590; A9270-GY

== ENCOUNTER 2022-05-13 11:43 | Emergency (ER) | payer OTHER ==
[2022-05-13] MEDS ORDERED: Zofran 4 MG/2 ML VIAL IV ONE (11:54)
[2022-05-13] MEDS ORDERED: Sodium Chloride 0.9% 1000 ML 1,000 ML IV STA (11:54)
--- NOTE | 2022-05-13 11:54 | ERPHSYRPT ---
- History of Present Illness Time Seen by Provider: 05/13/22 11:54 Historian: patient Exam Limitations: no limitations Physician History: This is a 26-year-old white female patient of Dr. Rubio Nichols who also is being followed by pharmacy aide Dr. Garcia. Patient states that she has had intermittent vomiting for 2 days. Zofran ODT does not appear to be helping. Osmin jeronimo denies abdominal pain. She denies vaginal bleeding. Patient had an obstructive ultrasound on 05/07/2022 and there is a single viable intrauterine fetus that is approximately 8 weeks along. However, the patient was told by Dr. Garcia, that she is closer to 9 weeks along. Patient has appointment to see her pharmacy aide on 05/17/2022. Patient completed Macrodantin which she was taken for 1 week for a recent urinary tract infection. Patient has had some electrolyte abnormalities with prior pregnancies. Patient denies chest pain. She denies shortness of breath. Additional history was obtained from the patient's spouse as well as review of outside obstetric ultrasound. Timing/Duration: day(s) (2) Activities at Onset: none Severity of Pain-Max: none Severity of Pain-Current: none Modifying Factors: Improves With: vomiting Associated Symptoms: vomiting Previous symptoms: recently seen, recently treated Allergies/Adverse Reactions: No Known Drug Allergies Allergy (Verified 05/13/22 12:07) Home Medications: Vits W-Ca,Fe,FA(<1Mg) [] 1 tab PO DAILY 07/08/19 [History] Hx Tetanus, Diphtheria Vaccination/Date Given: Yes Hx Influenza Vaccination/Date Given: Yes Hx Pneumococcal Vaccination/Date Given: No Travel Risk - International Travel Have you traveled outside of the country in past 3 weeks: No - Coronavirus Screening Are you exhibiting any of the following symptoms?: No Symptoms: Vomiting/Diarrhea Close contact with a COVID-19 positive Pt in past 14-21 Days: No - Vaccine Status Have you recieved a Covid-19 vaccination: No - Review of Systems Constitutional: No Symptoms Eyes: No Symptoms Ears, Nose, & Throat: No Symptoms Respiratory: No Symptoms Cardiac: No Symptoms Abdominal/Gastrointestinal: Nausea, Vomiting, Appetite Changes, No Abdominal Pain, No Diarrhea, No Constipation Genitourinary Symptoms: No Symptoms Musculoskeletal: No Symptoms Skin: No Symptoms Neurological: No Symptoms Psychological: No Symptoms Endocrine: No Symptoms Hematologic/Lymphatic: No Symptoms Immunological/Allergic: No Symptoms All Other Systems: Reviewed and Negative - Past Medical History Pertinent Past Medical History: Yes Neurological History: No Pertinent History ENT History: No Pertinent History Cardiac History: No Pertinent History Respiratory History: No Pertinent History Endocrine Medical History: No Pertinent History Musculoskeletal History: No Pertinent History GI Medical History: No Pertinent History History: No Pertinent History Psycho-Social History: No Pertinent History Female Reproductive Disorders: No Pertinent History Other Medical History: preeclampsia and electrolyte imbalances with PREVIOUS - Past Surgical History Past Surgical History: Yes Neuro Surgical History: No Pertinent History Cardiac: No Pertinent History Respiratory: No Pertinent History Gastrointestinal: No Pertinent History Genitourinary: No Pertinent History Musculoskeletal: No Pertinent History Female Surgical History: No Pertinent History Other Surgical History: TONSILECTOMY/ADNOIDS - Social History Smoking Status: Never smoker Exposure to second hand smoke: No Alcohol Use: None Drug Use: none Patient Lives Alone: Yes Significant Family History: no pertinent family hx - Nursing Vital Signs Nursing Vital Signs: Initial Vital Signs Temperature 97.7 F 05/13/22 12:08 Respiratory Rate 18 05/13/22 12:08 O2 Sat by Pulse Oximetry 97 05/13/22 12:08 Pain Scale Pain Intensity 0 - Physical Exam General Appearance: no apparent distress, alert, anxiety Eye Exam: PERRL/EOMI, eyes nml inspection Ears, Nose, Throat Exam: normal ENT inspection, moist mucous membranes Neck Exam: normal inspection, non-tender, supple, full range of motion Respiratory Exam: normal breath sounds, lungs clear, airway intact, No chest tenderness, No respiratory distress Cardiovascular Exam: regular rate/rhythm, normal heart sounds, normal peripheral pulses Gastrointestinal/Abdomen Exam: soft, normal bowel sounds, No tenderness Pelvic Exam: not done Rectal Exam: not done Back Exam: normal inspection, normal range of motion, No CVA tenderness, No vertebral tenderness Extremity Exam: normal inspection, normal range of motion, pelvis stable Neurologic Exam: alert, oriented x 3, cooperative, assistant plant controller II-XII nml as tested, normal mood/affect, nml cerebellar function, nml station & gait, sensation nml Skin Exam: normal color, warm, dry Lymphatic Exam: No adenopathy SpO2 Interpretation: normal O2 Delivery: Room Air - Course Nursing assessment & vital signs reviewed: Yes Ordered Tests: Active Orders 24 hr Category Date Time Status IV Insertion STAT Care 05/13/22 11:54 Active AMYLASE Stat Lab 05/13/22 12:15 Completed CBC W DIFF Stat Lab 05/13/22 12:15 Completed CMP Stat Lab 05/13/22 12:15 Completed LIPASE Stat Lab 05/13/22 12:15 Completed UA W/RFX UR CULTURE Stat Lab 05/13/22 12:01 Completed Medication Summary Discontinued Medications Generic Name Dose Route Start Last Admin Trade Name Freq PRN Reason Stop Dose Admin Sodium Chloride 1,000 mls @ 999 mls/hr 05/13/22 11:54 05/13/22 13:09 Sodium Chloride 0.9% 1000 Ml IV 05/13/22 12:54 Infused .Q1H1M STA Infusion Sodium Chloride Confirm 05/13/22 12:03 Sodium Chloride 0.9% 1000 Ml Administered 05/13/22 12:04 Dose 1,000 mls @ ud .ROUTE .STK-MED ONE Ondansetron HCl 4 mg 05/13/22 11:54 05/13/22 12:08 Ondansetron Hcl 4 Mg/2 Ml Vial IV 05/13/22 11:55 4 mg STAT ONE Administration Ondansetron HCl Confirm 05/13/22 12:03 Ondansetron Hcl 4 Mg/2 Ml Vial Administered 05/13/22 12:04 Dose 4 mg .ROUTE .STK-MED ONE Lab/Rad Data: Laboratory Result Diagrams 05/13/22 12:15 05/13/22 12:15 Laboratory Results 05/13/22 05/13/22 05/13/22 Range/Units 12:15 12:15 12:15 WBC 13.5 H (4.0-10.5) x10^3/uL RBC 4.26 (4.1-5.4) x10^6/uL Hgb 12.8 (12.0-16.0) g/dL Hct 38.6 (35-47) % MCV 90.6 (78-100) fL MCH 30.0 (26-32) pg MCHC 33.2 (32-36) g/dL RDW 12.1 (11.5-14.0) % Plt Count 287 (150-450) x10^3/uL MPV 10.2 (7.5-11.0) fL Gran % 82.5 H (36.0-66.0) % Immature Gran % (Auto) 0.4 (0.00-0.4) % Nucleat RBC Rel Count 0.0 (0.00-0.1) % Eos # (Auto) 0.16 (0-0.5) x10^3/uL Immature Gran # (Auto) 0.05 H (0.00-0.03) x10^3u/L Absolute Lymphs (auto) 1.04 (1.0-4.6) x10^3/uL Absolute Monos (auto) 1.06 (0.0-1.3) x10^3/uL Absolute Nucleated RBC 0.00 (0.00-0.01) x10^3u/L Lymphocytes % 7.7 L (24.0-44.0) % Monocytes % 7.9 (0.0-12.0) % Eosinophils % 1.2 (0.00-5.0) % Basophils % 0.3 (0.0-0.4) % Absolute Granulocytes 11.10 H (1.4-6.9) x10^3/uL Basophils # 0.04 (0-0.4) x10^3/uL Sodium 137 (137-145) mmol/L Potassium 3.9 (3.5-5.1) mmol/L Chloride 105 (98-107) mmol/L Carbon Dioxide 21 L (22-30) mmol/L Anion Gap 14.8 (5-15) MEQ/L BUN 8 (7-17) mg/dL Creatinine 0.38 L (0.52-1.04) mg/dL Estimated GFR > 60.0 ML/MIN Glucose 92 (74-106) mg/dL Calcium 9.4 (8.4-10.2) mg/dL Total Bilirubin 0.60 (0.2-1.3) mg/dL AST 22 (14-36) U/L ALT 14 (0-35) U/L Alkaline Phosphatase 59 (38-126) U/L Serum Total Protein 7.4 (6.3-8.2) g/dL Albumin 4.5 (3.5-5.0) g/dL Amylase 54 (30-110) U/L Lipase 49 (23-300) U/L Urine Color (Yellow) Urine Appearance (Clear) Urine pH (4.6-8.0) Ur Specific [place] (1.005-1.030) Urine Protein (Negative) Urine Glucose (UA) (Negative) mg/dL Urine Ketones (Negative) Urine Blood (Negative) Urine Nitrite (Negative) Urine Bilirubin (Negative) Urine Urobilinogen (0.2) mg/dL Ur Leukocyte Esterase (Negative) U Hyaline Cast (Auto) (0-2) /LPF Urine Microscopic RBC (0-5) /HPF Urine Microscopic WBC (0-5) /HPF Ur Epithelial Cells (None Seen) /HPF Urine Bacteria (None Seen) /HPF Urine Culture Reflexed (NO) Influenza Type A Ag NEGATIVE (NEGATIVE) Influenza Type B Ag NEGATIVE (NEGATIVE) RSV (PCR) NEGATIVE (Negative) SARS-CoV-2 (PCR) NEGATIVE (NEGATIVE) 05/13/22 Range/Units 12:01 WBC (4.0-10.5) x10^3/uL RBC (4.1-5.4) x10^6/uL Hgb (12.0-16.0) g/dL Hct (35-47) % MCV (78-100) fL MCH (26-32) pg MCHC (32-36) g/dL RDW (11.5-14.0) % Plt Count (150-450) x10^3/uL MPV (7.5-11.0) fL Gran % (36.0-66.0) % Immature Gran % (Auto) (0.00-0.4) % Nucleat RBC Rel Count (0.00-0.1) % Eos # (Auto) (0-0.5) x10^3/uL Immature Gran # (Auto) (0.00-0.03) x10^3u/L Absolute Lymphs (auto) (1.0-4.6) x10^3/uL Absolute Monos (auto) (0.0-1.3) x10^3/uL Absolute Nucleated RBC (0.00-0.01) x10^3u/L Lymphocytes % (24.0-44.0) % Monocytes % (0.0-12.0) % Eosinophils % (0.00-5.0) % Basophils % (0.0-0.4) % Absolute Granulocytes (1.4-6.9) x10^3/uL Basophils # (0-0.4) x10^3/uL Sodium (137-145) mmol/L Potassium (3.5-5.1) mmol/L Chloride (98-107) mmol/L Carbon Dioxide (22-30) mmol/L Anion Gap (5-15) MEQ/L BUN (7-17) mg/dL Creatinine (0.52-1.04) mg/dL Estimated GFR ML/MIN Glucose (74-106) mg/dL Calcium (8.4-10.2) mg/dL Total Bilirubin (0.2-1.3) mg/dL AST (14-36) U/L ALT (0-35) U/L Alkaline Phosphatase (38-126) U/L Serum Total Protein (6.3-8.2) g/dL Albumin (3.5-5.0) g/dL Amylase (30-110) U/L Lipase (23-300) U/L Urine Color Yellow (Yellow) Urine Appearance Cloudy A (Clear) Urine pH 7.0 (4.6-8.0) Ur Specific [place] 1.025 (1.005-1.030) Urine Protein Trace A (Negative) Urine Glucose (UA) Negative (Negative) mg/dL Urine Ketones 15 A (Negative) Urine Blood Negative (Negative) Urine Nitrite Negative (Negative) Urine Bilirubin Negative (Negative) Urine Urobilinogen 1.0 A (0.2) mg/dL Ur Leukocyte Esterase Small A (Negative) U Hyaline Cast (Auto) NONE SEEN (0-2) /LPF Urine Microscopic RBC 0-2 (0-5) /HPF Urine Microscopic WBC 3-5 (0-5) /HPF Ur Epithelial Cells Moderate A (None Seen) /HPF Urine Bacteria Few A (None Seen) /HPF Urine Culture Reflexed NO (NO) Influenza Type A Ag (NEGATIVE) Influenza Type B Ag (NEGATIVE) RSV (PCR) (Negative) SARS-CoV-2 (PCR) (NEGATIVE) - Progress Progress: improved Progress Note: 05/13/22 13:33 This patient's medical history is of moderate complexity. This is based on the patient's complaint, history, physical exam findings and reviewed the patient's drug allergies and medication list. Based on this I ordered intravenous line, intravenous fluid, blood work and a urinalysis. I reviewed the results of the studies and reviewed the results of the studies with the patient. Patient is and has a urinary tract infection and has mild dehydration. Based on the above, the patient is receiving intravenous antibiotics and discharge planning to include Keflex antibiotics which was discussed with the patient. And instructions to continue using the Zofran as needed and to keep her appointment to see her pharmacy aide on 05/17/2022. Counseled pt/family regarding: lab results, diagnosis, need for follow-up - Departure Departure Disposition: Home Clinical Impression: UTI (urinary tract infection) during Condition: Stable Critical Care Time: No Referrals: SONJA REYES [Primary Care Provider] - Follow up/PCP as directed Additional Instructions: Drink plenty of fluids. Take your antibiotics as prescribed. Keep your appointment with your pharmacy aide for further evaluation management. Prescriptions: Cephalexin Mh 500 mg [Keflex 500 mg] 500 mg PO TID #21 cap
[2022-05-13] MEDS ORDERED: Sodium Chloride 0.9% 1000 ML 1,000 ML ONE (12:03)
[2022-05-13] MEDS ORDERED: Zofran 4 MG/2 ML VIAL ONE (12:03)
[2022-05-13 12:32] LABS: BASOPHIL % 0.3 % (0.0-0.4); Basophil (Absolute #) 0.04 x10^3/uL (0-0.4); Eosinophil % 1.2 % (0.00-5.0); Eosinophil (Absolute #) 0.16 x10^3/uL (0-0.5); Hematocrit 38.6 % (35-47); Hemoglobin 12.8 g/dL (12.0-16.0); IMMATURE GRAN # 0.05 x10^3u/L (0.00-0.03); IMMATURE GRAN % 0.4 % (0.00-0.4); Lymphocyte (Absolute #) 1.04 x10^3/uL (1.0-4.6); Lymphocytes % 7.7 % (24.0-44.0); Mean Cell Volume 90.6 fL (78-100); Mean Corpuscular Hgb Concent. 33.2 g/dL (32-36); Mean Platelet Volume 10.2 fL (7.5-11.0); Monocyte (Absolute #) 1.06 x10^3/uL (0.0-1.3); Monocytes % 7.9 % (0.0-12.0); Neutrophil % 82.5 % (36.0-66.0); Platelet Count 287 x10^3/uL (150-450); Red Blood Count 4.26 x10^6/uL (4.1-5.4); Red Cell Distribution Width 12.1 % (11.5-14.0); White Blood Count 13.5 x10^3/uL (4.0-10.5)
[2022-05-13 12:38] LABS: Appearance Cloudy (Clear); Bacteria Few /HPF (None Seen); Bilirubin Negative (Negative); Blood Negative (Negative); Epithelial Cells Moderate /HPF (None Seen); Glucose, Urine Negative (Negative); Hyaline Casts NONE SEEN /LPF (0-2); Ketones 15 (Negative); Leukocyte Esterase Small (Negative); Nitrite Negative (Negative); Protein,Urine Dip Trace (Negative); RBC 0-2 /HPF (0-5); Specific Gravity 1.025 (1.005-1.030)
[2022-05-13 12:42] LABS: ALBUMIN 4.5 g/dL (3.5-5.0); ALKALINE PHOSPHATASE 59 U/L (38-126); AMYLASE 54 U/L (30-110); ANION GAP 14.8 MEQ/L (5-15); BLOOD UREA NITROGEN 8 mg/dL (7-17); CHLORIDE 105 mmol/L (98-107); Calcium 9.4 mg/dL (8.4-10.2); Carbon Dioxide 21 mmol/L (22-30); Creatinine 1 0.38 mg/dL (0.52-1.04); EST GLOMERULAR FILTRATION RATE > 60.0 ML/MIN; Glucose 92 mg/dL (74-106); LIPASE 49 U/L (23-300); Potassium 3.9 mmol/L (3.5-5.1); SGOT/AST 22 U/L (14-36); SGPT/ALT 14 U/L (0-35); SODIUM 137 mmol/L (137-145); Total Protein 7.4 g/dL (6.3-8.2)
[2022-05-13 13:02] LABS: INFLUENZA A NEGATIVE (NEGATIVE); INFLUENZA B NEGATIVE (NEGATIVE); RESPIRATORY SYNCTIAL VIRUS NEGATIVE (Negative); SARS-CoV-2 Xpert Express NEGATIVE (NEGATIVE)
[2022-05-13 13:05] LABS: ADD URINE CULTURE? NO (NO)
[2022-05-13] MEDS ORDERED: Sodium Chloride 0.9% 500 ML 500 ML IV ONE ×2 (13:32→13:35)
[2022-05-13] MEDS ORDERED: ROCEPHIN 1 Gm-D5w 50 ml Bag** 1 G/50 ML IVPB IV STA (14:01)
[2022-05-13] MEDS ORDERED: ROCEPHIN 1 Gm-D5w 50 ml Bag** 1 G/50 ML IVPB IV ONE (14:14)
[2022-05-13 14:23] VITALS: BP 112/65; PULSE 84; O2SAT 99
== END 2022-05-13 14:28 | disposition home or self-care (01) ==
LOC: ED 11:43
DX: O23.41 Unspecified infection of urinary tract in pregnancy, first trimester (principal); N39.0 Urinary tract infection, site not specified; Z3A.08 8 weeks gestation of pregnancy; O26.891 Other specified pregnancy related conditions, first trimester; E86.0 Dehydration; O21.9 Vomiting of pregnancy, unspecified; Z28.310 Unvaccinated for COVID-19
CPT/HCPCS: 0241U; 36000; 36415; 80053; 81001; 82150; 83690; 85025; 96360; 96361; 96365; 96374; 99284; J0696; J2405

== ENCOUNTER 2022-05-27 11:01 | Emergency (ER) | payer OTHER ==
--- NOTE | 2022-05-27 12:33 | ERPHSYRPT ---
- History of Present Illness Time Seen by Provider: 05/27/22 12:33 Historian: patient Exam Limitations: no limitations Patient Subjective Stated Complaint: "I've been vomiting for the past 2 days every couple of hours, I'm [address] Garcia sent me over here. I have pain in my side and back too." Triage Nursing Assessment: Pt presents to ER with complains of vomiting x 2 days, states is 11 weeks . States her OBGYN is aware and told her to come to ER. Pt is alert and oriented x 3. Skin is pale, warm, and dry. Pt states vomiting has been occurring every couple of hours and is green in color. Pt respirations are easy. Pt states has some pain in left side and left back, rates pain 6/10 scale. States this is her 3rd , hx of preeclampsia. Pt denies any vaginal bleeding or abnormal discharge Physician History: There is a 26-year-old white female patient of Dr. Rubio Nichols and obst etrician Dr. Garcia who presents to the emergency department with 2-day history of intermittent vomiting every 2-3 hours. She has no significant abdominal pain and she has no vaginal bleeding. She was seen in our emergency department on 05/13/2022 for the same issue. Patient is being set up for Zofran antiemetic pump. Patient has not had a fever. She has no cough. She has no chest pain. Timing/Duration: day(s) (2) Activities at Onset: none Abdominal Pain Onset Location: other (No significant abdominal pain) Severity of Pain-Max: none Severity of Pain-Current: none Associated Symptoms: nausea, rash, vomiting, weakness Previous symptoms: no recent treatment Allergies/Adverse Reactions: No Known Drug Allergies Allergy (Verified 05/27/22 12:09) Home Medications: Vits W-Ca,Fe,FA(<1Mg) [] 1 tab PO DAILY 07/08/19 [History] Hx Tetanus, Diphtheria Vaccination/Date Given: Yes Hx Influenza Vaccination/Date Given: No Hx Pneumococcal Vaccination/Date Given: No Immunizations Up to Date: Yes Travel Risk - International Travel Have you traveled outside of the country in past 3 weeks: No - Coronavirus Screening Are you exhibiting any of the following symptoms?: No Close contact with a COVID-19 positive Pt in past 14-21 Days: No - Vaccine Status Have you recieved a Covid-19 vaccination: Yes Modern Languages Professor: Unknown - Vaccination Dates Dates if Unknown: unknown - Review of Systems Constitutional: Weakness Eyes: No Symptoms Ears, Nose, & Throat: No Symptoms Respiratory: No Symptoms Cardiac: No Symptoms Abdominal/Gastrointestinal: Nausea, Vomiting, No Abdominal Pain, No Diarrhea, No Constipation Genitourinary Symptoms: No Symptoms Musculoskeletal: No Symptoms Skin: No Symptoms Neurological: No Symptoms, Sensory Changes Psychological: No Symptoms Endocrine: No Symptoms Hematologic/Lymphatic: No Symptoms Immunological/Allergic: No Symptoms All Other Systems: Reviewed and Negative - Past Medical History Pertinent Past Medical History: Yes Neurological History: No Pertinent History ENT History: No Pertinent History Cardiac History: No Pertinent History Respiratory History: No Pertinent History Endocrine Medical History: No Pertinent History Musculoskeletal History: No Pertinent History GI Medical History: No Pertinent History History: No Pertinent History Psycho-Social History: Anxiety Female Reproductive Disorders: No Pertinent History Other Medical History: preeclampsia and electrolyte imbalances with PREVIOUS - Past Surgical History Past Surgical History: Yes Neuro Surgical History: No Pertinent History Cardiac: No Pertinent History Respiratory: No Pertinent History Gastrointestinal: No Pertinent History Genitourinary: No Pertinent History Musculoskeletal: No Pertinent History Female Surgical History: No Pertinent History Other Surgical History: TONSILECTOMY/ADNOIDS - Social History Smoking Status: Never smoker Exposure to second hand smoke: No Alcohol Use: None Drug Use: none Patient Lives Alone: No Significant Family History: no pertinent family hx - Female History Hx Last Menstrual Period: 03/14/22 Hx Now: Yes Gestational Age: 11 weeks - Nursing Vital Signs Nursing Vital Signs: Initial Vital Signs Temperature 98.4 F 05/27/22 12:01 Pulse Rate 113 H 05/27/22 12:01 Respiratory Rate 16 05/27/22 12:01 Blood Pressure 112/69 05/27/22 12:01 O2 Sat by Pulse Oximetry 100 05/27/22 12:01 Pain Scale Pain Intensity 6 - Physical Exam General Appearance: no apparent distress, alert Eye Exam: PERRL/EOMI, eyes nml inspection Ears, Nose, Throat Exam: normal ENT inspection, moist mucous membranes Neck Exam: normal inspection, non-tender, supple, full range of motion Respiratory Exam: normal breath sounds, lungs clear, airway intact, No chest tenderness, No respiratory distress Cardiovascular Exam: tachycardia Gastrointestinal/Abdomen Exam: soft, normal bowel sounds, No tenderness Pelvic Exam: not done Rectal Exam: not done Back Exam: normal inspection, normal range of motion, No CVA tenderness, No vertebral tenderness Extremity Exam: normal inspection, normal range of motion, pelvis stable Neurologic Exam: alert, oriented x 3, cooperative, flight/transport nurse II-XII nml as tested, normal mood/affect, nml cerebellar function, nml station & gait, sensation nml Skin Exam: normal color, warm, dry Lymphatic Exam: No adenopathy SpO2 Interpretation: normal SpO2: 100 O2 Delivery: Room Air - Course Nursing assessment & vital signs reviewed: Yes Ordered Tests: Active Orders 24 hr Category Date Time Status IV Insertion STAT Care 05/27/22 13:07 Active AMYLASE Stat Lab 05/27/22 13:09 Completed BLOOD CULTURE Stat Lab 05/27/22 13:20 Received CBC W DIFF Stat Lab 05/27/22 13:09 Completed CMP Stat Lab 05/27/22 13:09 Completed CULTURE,URINE Stat Lab 05/27/22 12:24 Received LIPASE Stat Lab 05/27/22 13:09 Completed UA W/RFX UR CULTURE Stat Lab 05/27/22 12:24 Completed Medication Summary Discontinued Medications Generic Name Dose Route Start Last Admin Trade Name Freq PRN Reason Stop Dose Admin Sodium Chloride 1,000 mls @ 999 mls/hr 05/27/22 13:07 05/27/22 14:33 Sodium Chloride 0.9% 1000 Ml IV 05/27/22 14:07 Infused .Q1H1M STA Infusion Sodium Chloride Confirm 05/27/22 13:28 Sodium Chloride 0.9% 1000 Ml Administered 05/27/22 13:29 Dose 1,000 mls @ ud .ROUTE .STK-MED ONE Ondansetron HCl 4 mg 05/27/22 13:07 05/27/22 13:30 Ondansetron Hcl 4 Mg/2 Ml Vial IV 05/27/22 13:08 4 mg STAT ONE Administration Ondansetron HCl Confirm 05/27/22 13:28 Ondansetron Hcl 4 Mg/2 Ml Vial Administered 05/27/22 13:29 Dose 4 mg .ROUTE .STK-MED ONE Lab/Rad Data: Laboratory Result Diagrams 05/27/22 13:09 05/27/22 13:09 Laboratory Results 05/27/22 05/27/22 05/27/22 Range/Units 13:09 13:09 12:24 WBC 10.9 H (4.0-10.5) x10^3/uL RBC 4.16 (4.1-5.4) x10^6/uL Hgb 12.3 (12.0-16.0) g/dL Hct 37.5 (35-47) % MCV 90.1 (78-100) fL MCH 29.6 (26-32) pg MCHC 32.8 (32-36) g/dL RDW 12.2 (11.5-14.0) % Plt Count 273 (150-450) x10^3/uL MPV 10.3 (7.5-11.0) fL Gran % 78.1 H (36.0-66.0) % Immature Gran % (Auto) 0.4 (0.00-0.4) % Nucleat RBC Rel Count 0.0 (0.00-0.1) % Eos # (Auto) 0.20 (0-0.5) x10^3/uL Immature Gran # (Auto) 0.04 H (0.00-0.03) x10^3u/L Absolute Lymphs (auto) 0.87 L (1.0-4.6) x10^3/uL Absolute Monos (auto) 1.22 (0.0-1.3) x10^3/uL Absolute Nucleated RBC 0.00 (0.00-0.01) x10^3u/L Lymphocytes % 8.0 L (24.0-44.0) % Monocytes % 11.2 (0.0-12.0) % Eosinophils % 1.8 (0.00-5.0) % Basophils % 0.5 (0.0-0.4) % Absolute Granulocytes 8.54 H (1.4-6.9) x10^3/uL Basophils # 0.05 (0-0.4) x10^3/uL Sodium 134 L (137-145) mmol/L Potassium 3.6 (3.5-5.1) mmol/L Chloride 99 (98-107) mmol/L Carbon Dioxide 25 (22-30) mmol/L Anion Gap 13.3 (5-15) MEQ/L BUN 7 (7-17) mg/dL Creatinine 0.42 L (0.52-1.04) mg/dL Estimated GFR > 60.0 ML/MIN Glucose 96 (74-106) mg/dL Calcium 9.3 (8.4-10.2) mg/dL Total Bilirubin 0.50 (0.2-1.3) mg/dL AST 20 (14-36) U/L ALT 13 (0-35) U/L Alkaline Phosphatase 68 (38-126) U/L Serum Total Protein 7.9 (6.3-8.2) g/dL Albumin 4.5 (3.5-5.0) g/dL Amylase 59 (30-110) U/L Lipase 33 (23-300) U/L Urine Color Dark Yellow A (Yellow) Urine Appearance Turbid A (Clear) Urine pH 7.0 (4.6-8.0) Ur Specific [place] 1.025 (1.005-1.030) Urine Protein 30 (Negative) Urine Glucose (UA) Negative (Negative) mg/dL Urine Ketones >=160 A (Negative) Urine Blood Trace (Negative) Urine Nitrite Negative (Negative) Urine Bilirubin Small A (Negative) Urine Urobilinogen 1.0 A (0.2) mg/dL Ur Leukocyte Esterase Moderate A (Negative) U Hyaline Cast (Auto) 3-5 A (0-2) /LPF Urine Microscopic RBC 6-10 A (0-5) /HPF Urine Microscopic WBC 51-100 A (0-5) /HPF Ur Epithelial Cells Moderate A (None Seen) /HPF Urine Bacteria Moderate A (None Seen) /HPF Urine Culture Reflexed YES (NO) - Progress Progress: improved Progress Note: 05/27/22 15:29 This patient's medical issue is 1 of moderate complexity. This is based on the history of present illness and the physical findings on examination. The work- up was based on the above and includes intravenous line placement, intravenous normal saline, Zofran antiemetic intravenously, CBC, CMP urinalysis. I reviewed the results of the work-up. The patient has a urinary tract infection and is mildly dehydrated. We added 1 g of Rocephin intravenously. I did call Dr. Garcia, the patient's concrete conveyor operator to update him. I reviewed the results with the patient as well. Discharge plan will include Keflex 500 mg 3 times a day for 7 days. Patient is to consume clear liquids and to follow-up with her concrete conveyor operator for the Zofran pump that is ordered for her Counseled pt/family regarding: lab results, diagnosis, need for follow-up Medical Desision Making - Discussion of managment Reviewed:: Test results Agreed on:: Treatment plan, need for follow-up - Diagnostic Testing Diagnostic test were ordered, analyzed, and reviewed by me: Yes - Risk of complications The pt has a mod risk of morbidity or mortality based on: Need for prescription drug management - Departure Departure Disposition: Home Clinical Impression: UTI in Condition: Stable Critical Care Time: No Referrals: SONJA REYES [Primary Care Provider] - Follow up/PCP as directed Additional Instructions: Drink plenty of fluids. Follow-up with your concrete conveyor operator to get your Zofran pump placed. Take your antibiotics as prescribed. Prescriptions: Cephalexin Mh 500 mg [Keflex 500 mg] 500 mg PO TID #21 cap
[2022-05-27 13:05] LABS: Appearance Turbid (Clear); Bacteria Moderate /HPF (None Seen); Bilirubin Small (Negative); Blood Trace (Negative); Epithelial Cells Moderate /HPF (None Seen); Glucose, Urine Negative (Negative); Ketones >=160 (Negative); Leukocyte Esterase Moderate (Negative); Nitrite Negative (Negative); Protein,Urine Dip 30 (Negative); Specific Gravity 1.025 (1.005-1.030); WBC 51-100 /HPF (0-5)
[2022-05-27 13:07] LABS: ADD URINE CULTURE? YES (NO)
[2022-05-27] MEDS ORDERED: Sodium Chloride 0.9% 1000 ML 1,000 ML IV STA (13:07)
[2022-05-27] MEDS ORDERED: Zofran 4 MG/2 ML VIAL IV ONE (13:07)
[2022-05-27 13:17] LABS: Absolute Neutrophil Ct (ANC) 8.54 x10^3/uL (1.4-6.9); BASOPHIL % 0.5 % (0.0-0.4); Basophil (Absolute #) 0.05 x10^3/uL (0-0.4); Eosinophil % 1.8 % (0.00-5.0); Hematocrit 37.5 % (35-47); Hemoglobin 12.3 g/dL (12.0-16.0); IMMATURE GRAN # 0.04 x10^3u/L (0.00-0.03); IMMATURE GRAN % 0.4 % (0.00-0.4); Lymphocyte (Absolute #) 0.87 x10^3/uL (1.0-4.6); Mean Cell Volume 90.1 fL (78-100); Mean Corpuscular Hemoglobin 29.6 pg (26-32); Mean Corpuscular Hgb Concent. 32.8 g/dL (32-36); Mean Platelet Volume 10.3 fL (7.5-11.0); Monocyte (Absolute #) 1.22 x10^3/uL (0.0-1.3); Monocytes % 11.2 % (0.0-12.0); Neutrophil % 78.1 % (36.0-66.0); Platelet Count 273 x10^3/uL (150-450); Red Blood Count 4.16 x10^6/uL (4.1-5.4); Red Cell Distribution Width 12.2 % (11.5-14.0); White Blood Count 10.9 x10^3/uL (4.0-10.5)
[2022-05-27] MEDS ORDERED: Zofran 4 MG/2 ML VIAL ONE (13:28)
[2022-05-27] MEDS ORDERED: Sodium Chloride 0.9% 1000 ML 1,000 ML ONE (13:28)
[2022-05-27 13:31] LABS: ALBUMIN 4.5 g/dL (3.5-5.0); ALKALINE PHOSPHATASE 68 U/L (38-126); AMYLASE 59 U/L (30-110); ANION GAP 13.3 MEQ/L (5-15); BLOOD UREA NITROGEN 7 mg/dL (7-17); CHLORIDE 99 mmol/L (98-107); Calcium 9.3 mg/dL (8.4-10.2); Carbon Dioxide 25 mmol/L (22-30); Creatinine 1 0.42 mg/dL (0.52-1.04); EST GLOMERULAR FILTRATION RATE > 60.0 ML/MIN; Glucose 96 mg/dL (74-106); LIPASE 33 U/L (23-300); Potassium 3.6 mmol/L (3.5-5.1); SGOT/AST 20 U/L (14-36); SGPT/ALT 13 U/L (0-35); SODIUM 134 mmol/L (137-145); Total Protein 7.9 g/dL (6.3-8.2)
[2022-05-27] MEDS ORDERED: ROCEPHIN 1 Gm-D5w 50 ml Bag** 1 G/50 ML IVPB IV STA (15:24)
[2022-05-27] MEDS ORDERED: TYLENOL 325 MG PO ONE (15:25)
[2022-05-27] MEDS ORDERED: ROCEPHIN 1 Gm-D5w 50 ml Bag** 1 G/50 ML IVPB IV ONE (15:33)
[2022-05-27] MEDS ORDERED: TYLENOL 325 MG ONE (15:33)
[2022-05-27 16:11] VITALS: BP 118/79; PULSE 102; O2SAT 99
== END 2022-05-27 16:57 | disposition home or self-care (01) ==
LOC: ED 11:01
DX: O23.41 Unspecified infection of urinary tract in pregnancy, first trimester (principal); N39.0 Urinary tract infection, site not specified; Z3A.11 11 weeks gestation of pregnancy; O21.9 Vomiting of pregnancy, unspecified
CPT/HCPCS: 36000; 36415; 80053; 81001; 82150; 83690; 85025; 87040; 87086; 96360; 96365; 96374; 99284; J0696; J2405; A9270-GY

== ENCOUNTER 2022-09-06 11:32 | Observation (INO) | payer OTHER ==
[2022-09-06] MEDS ORDERED: Invanz *** 1 G in Sodium Chloride 100ML MINI-BAG PLUS 100 ML IV STA (12:02)
[2022-09-06 12:39] VITALS: BP 119/77; PULSE 88; O2SAT 100
== END 2022-09-06 13:20 | disposition home or self-care (01) ==
LOC: OB 11:32
PROVIDERS: ADMIT Obstetrics & Gynecology; ATTEND Obstetrics & Gynecology
DX: Z34.82 Encounter for supervision of other normal pregnancy, second trimester (principal); Z3A.25 25 weeks gestation of pregnancy
CPT/HCPCS: 96372; G0378; G0379; J1335

== ENCOUNTER 2022-12-03 17:56 | Observation (INO) | payer MEDICAID ==
[2022-12-03 18:44] VITALS: O2SAT 98
[2022-12-03 19:00] VITALS: PULSE 97
[2022-12-03 19:35] LABS: Hematocrit 28.2 % (35-47); Hemoglobin 8.3 g/dL (12.0-16.0); Mean Cell Volume 82.5 fL (78-100); Mean Corpuscular Hemoglobin 24.3 pg (26-32); Mean Corpuscular Hgb Concent. 29.4 g/dL (32-36); Mean Platelet Volume 10.6 fL (7.5-11.0); Platelet Count 397 x10^3/uL (150-450); Red Blood Count 3.42 x10^6/uL (4.1-5.4); Red Cell Distribution Width 15.6 % (11.5-14.0); White Blood Count 11.2 x10^3/uL (4.0-10.5)
[2022-12-03 19:40] LABS: ALBUMIN 3.7 g/dL (3.5-5.0); ALKALINE PHOSPHATASE 117 U/L (38-126); ANION GAP 12.4 MEQ/L (5-15); CHLORIDE 104 mmol/L (98-107); Calcium 8.9 mg/dL (8.4-10.2); Carbon Dioxide 24 mmol/L (22-30); Creatinine 1 0.37 mg/dL (0.52-1.04); EST GLOMERULAR FILTRATION RATE > 60.0 ML/MIN; Glucose 111 mg/dL (74-106); Potassium 3.1 mmol/L (3.5-5.1); SGOT/AST 23 U/L (14-36); SGPT/ALT 14 U/L (0-35); SODIUM 138 mmol/L (137-145); Total Protein 6.8 g/dL (6.3-8.2)
[2022-12-03 19:42] LABS: BLOOD UREA NITROGEN 2 mg/dL (7-17)
[2022-12-03 19:47] LABS: Amphetamine,Urine NEGATIVE (NEGATIVE); Barbiturate,Urine NEGATIVE (NEGATIVE); Benzodiazepine,Urine NEGATIVE (NEGATIVE); Cocaine,Urine NEGATIVE (NEGATIVE); Methadone,Urine NEGATIVE (NEGATIVE); Opiate,Urine NEGATIVE (NEGATIVE); PCP,Urine NEGATIVE (NEGATIVE); THC,Urine NEGATIVE (NEGATIVE)
[2022-12-03 20:01] VITALS: BP 136/83; RESP 16; TEMP 98.9
[2022-12-03 20:12] LABS: Appearance Clear (Clear); Bacteria Rare /HPF (None Seen); Bilirubin Negative (Negative); Blood Negative (Negative); Epithelial Cells Rare /HPF (None Seen); Glucose, Urine Negative (Negative); Hyaline Casts NONE SEEN /LPF (0-2); Ketones Negative (Negative); Leukocyte Esterase Trace (Negative); Nitrite Negative (Negative); Protein,Urine Dip Negative (Negative); RBC 0-2 /HPF (0-5); Specific Gravity <=1.005 (1.005-1.030)
[2022-12-03 20:13] LABS: ADD URINE CULTURE? YES (NO)
[2022-12-03] MEDS ORDERED: K-LYTE PO ONE (20:21)
[2022-12-03] MEDS ORDERED: K-LYTE ONE (20:26)
== END 2022-12-03 20:45 | disposition home or self-care (01) ==
LOC: OB.NST 17:56 → OB 18:45
PROVIDERS: ADMIT Obstetrics & Gynecology; ATTEND Obstetrics & Gynecology
DX: Z34.83 Encounter for supervision of other normal pregnancy, third trimester (principal); Z3A.37 37 weeks gestation of pregnancy
CPT/HCPCS: 36415; 80053; 80307; 81001; 85027; 87086; G0378; A9270-GY

== ENCOUNTER 2022-12-05 18:01 | Inpatient (IN) | payer MEDICAID ==
[2022-12-05] MEDS ORDERED: Lactated Ringers 1,000 ML IV ONE (18:39)
[2022-12-05] MEDS ORDERED: Ephedrine Sulfate 50 MG/ML IV PRN (18:39)
[2022-12-05] MEDS ORDERED: FENTANYL 2 MCG-BUPIV 0.125%-NS 250 ML Epidur 250 ML EPIDURAL SCH (18:45)
[2022-12-05 18:46] LABS: Absolute Neutrophil Ct (ANC) 8.03 x10^3/uL (1.4-6.9); BASOPHIL % 0.3 % (0.0-0.4); Basophil (Absolute #) 0.03 x10^3/uL (0-0.4); Eosinophil % 2.1 % (0.00-5.0); Eosinophil (Absolute #) 0.25 x10^3/uL (0-0.5); Hematocrit 29.8 % (35-47); Hemoglobin 8.8 g/dL (12.0-16.0); IMMATURE GRAN # 0.06 x10^3u/L (0.00-0.03); IMMATURE GRAN % 0.5 % (0.00-0.4); Lymphocyte (Absolute #) 2.45 x10^3/uL (1.0-4.6); Lymphocytes % 20.4 % (24.0-44.0); Mean Cell Volume 81.6 fL (78-100); Mean Corpuscular Hemoglobin 24.1 pg (26-32); Mean Corpuscular Hgb Concent. 29.5 g/dL (32-36); Mean Platelet Volume 10.8 fL (7.5-11.0); Monocyte (Absolute #) 1.17 x10^3/uL (0.0-1.3); Monocytes % 9.8 % (0.0-12.0); Neutrophil % 66.9 % (36.0-66.0); Platelet Count 421 x10^3/uL (150-450); Red Blood Count 3.65 x10^6/uL (4.1-5.4); Red Cell Distribution Width 15.8 % (11.5-14.0)
[2022-12-05 18:54] LABS: Creatinine, Urine Random 121.5 mg/dl; Protein Creatinine Ratio, Ran. 0.16 mg/mg (0.0-0.15)
[2022-12-05] MEDS ORDERED: XYLOCAINE 1% HCL 20 ML MDV IJ PRN (18:59)
[2022-12-05] MEDS ORDERED: BRETHINE 1 MG/ML SQ PRN (18:59)
[2022-12-05 19:00] LABS: ALBUMIN 3.9 g/dL (3.5-5.0); ALKALINE PHOSPHATASE 139 U/L (38-126); ANION GAP 14.1 MEQ/L (5-15); BLOOD UREA NITROGEN 3 mg/dL (7-17); CHLORIDE 104 mmol/L (98-107); Calcium 8.9 mg/dL (8.4-10.2); Carbon Dioxide 21 mmol/L (22-30); Creatinine 1 0.36 mg/dL (0.52-1.04); EST GLOMERULAR FILTRATION RATE > 60.0 ML/MIN; Glucose 109 mg/dL (74-106); Potassium 3.2 mmol/L (3.5-5.1); SGOT/AST 25 U/L (14-36); SGPT/ALT 15 U/L (0-35); SODIUM 137 mmol/L (137-145); Total Protein 7.2 g/dL (6.3-8.2)
[2022-12-05] MEDS ORDERED: PITOCIN 30 UNITS/ LR 500 ML 30 UNITS/500 ML PLAST..BAG IV SCH ×2 (19:00)
[2022-12-05] MEDS ORDERED: Lactated Ringers 1,000 ML IV SCH (19:00)
[2022-12-05 19:22] LABS: Amphetamine,Urine NEGATIVE (NEGATIVE); Barbiturate,Urine NEGATIVE (NEGATIVE); Benzodiazepine,Urine NEGATIVE (NEGATIVE); Cocaine,Urine NEGATIVE (NEGATIVE); Methadone,Urine NEGATIVE (NEGATIVE); Opiate,Urine NEGATIVE (NEGATIVE); PCP,Urine NEGATIVE (NEGATIVE); THC,Urine NEGATIVE (NEGATIVE)
[2022-12-05 20:59] LABS: Appearance Clear (Clear); Bacteria Rare /HPF (None Seen); Bilirubin Negative (Negative); Blood Negative (Negative); Epithelial Cells None Seen /HPF (None Seen); Glucose, Urine Negative (Negative); Hyaline Casts NONE SEEN /LPF (0-2); Ketones Negative (Negative); Leukocyte Esterase Trace (Negative); Nitrite Negative (Negative); Ph 7.5 (4.6-8.0); Protein,Urine Dip Negative (Negative); RBC 0-2 /HPF (0-5); Specific Gravity <=1.005 (1.005-1.030)
[2022-12-05 21:11] LABS: ADD URINE CULTURE? ORDERED SEPARATELY (NO)
[2022-12-05 21:27] VITALS: RESP 18; TEMP 98.6
[2022-12-05 22:24] LABS: ABO TYPING AB; Antibody Screen NEGATIVE (NEGATIVE); RH TYPING POSITIVE
[2022-12-06] MEDS ORDERED: TYLENOL EXTRA STRENGTH 500 MG PO PRN (02:21)
[2022-12-06] MEDS ORDERED: MOTRIN 400 MG PO PRN (02:21)
[2022-12-06] MEDS ORDERED: LANSINOH 40 GM TOP PRN (02:21)
[2022-12-06] MEDS ORDERED: Dulcolax 10 MG SUPP PR PRN (02:21)
[2022-12-06] MEDS ORDERED: Dermoplast Spray TP PRN (02:21)
--- NOTE | 2022-12-06 09:26 | PCM.NOTE ---
Date and Time: 12/06/22922 Subjective Assessment: ppd 0 sp pt resting in bed and doing well able to ambulate and tolerate diet. baby being transferred today for transient tachypnea and desires to be discharged todayl. vss afebrile abd; soft uterus; firm lochia; mild hgb; 8.8 a/p sp ppd 0 with resolved preeclampsia pt desires to be discharged today bp stable may be discharged to fu in office in 1 wk OBJECTIVE DATA Vital Signs: Vital Signs - 24 hr Temp Pulse Resp BP BP 12/05/22 22:15 86 18 140/86 12/05/22 22:00 88 18 131/85 12/05/22 21:45 95 H 18 129/82 12/05/22 21:30 88 18 133/82 12/05/22 21:15 88 18 119/78 12/05/22 21:09 98.6 F 101 H 18 133/82 12/05/22 21:00 18 12/05/22 20:45 89 18 133/86 12/05/22 20:30 83 18 129/82 12/05/22 20:00 101 H 18 144/86 133/84 12/05/22 19:30 111 H 18 143/96 12/05/22 19:01 101 H 18 138/94 12/05/22 18:30 98.6 F 93 H 18 147/104 12/05/22 18:15 98.6 F 92 H 142/96 Pain Assessment - Last Documented Pain Intensity 4 Intake and Output: Intake & Output 12/03/22 12/04/22 12/05/22 12/06/22 11:59 11:59 11:59 11:59 Weight 76.657 kg Lab Results: Lab Results-Last 24 Hours 12/05/22 12/05/22 12/05/22 Range/Units 16:40 18:15 18:15 WBC 12.0 H (4.0-10.5) x10^3/uL RBC 3.65 L (4.1-5.4) x10^6/uL Hgb 8.8 L (12.0-16.0) g/dL Hct 29.8 L (35-47) % MCV 81.6 (78-100) fL MCH 24.1 L (26-32) pg MCHC 29.5 L (32-36) g/dL RDW 15.8 H (11.5-14.0) % Plt Count 421 (150-450) x10^3/uL MPV 10.8 (7.5-11.0) fL Gran % 66.9 H (36.0-66.0) % Immature Gran % (Auto) 0.5 H (0.00-0.4) % Nucleat RBC Rel Count 0.0 (0.00-0.1) % Eos # (Auto) 0.25 (0-0.5) x10^3/uL Immature Gran # (Auto) 0.06 H (0.00-0.03) x10^3u/L Absolute Lymphs (auto) 2.45 (1.0-4.6) x10^3/uL Absolute Monos (auto) 1.17 (0.0-1.3) x10^3/uL Absolute Nucleated RBC 0.00 (0.00-0.01) x10^3u/L Lymphocytes % 20.4 L (24.0-44.0) % Monocytes % 9.8 (0.0-12.0) % Eosinophils % 2.1 (0.00-5.0) % Basophils % 0.3 (0.0-0.4) % Absolute Granulocytes 8.03 H (1.4-6.9) x10^3/uL Basophils # 0.03 (0-0.4) x10^3/uL Sodium 137 (137-145) mmol/L Potassium 3.2 L (3.5-5.1) mmol/L Chloride 104 (98-107) mmol/L Carbon Dioxide 21 L (22-30) mmol/L Anion Gap 14.1 (5-15) MEQ/L BUN 3 L (7-17) mg/dL Creatinine 0.36 L (0.52-1.04) mg/dL Estimated GFR > 60.0 ML/MIN Glucose 109 H (74-106) mg/dL Uric Acid (2.6-6.0) mg/dL Calcium 8.9 (8.4-10.2) mg/dL Total Bilirubin 0.60 (0.2-1.3) mg/dL AST 25 (14-36) U/L ALT 15 (0-35) U/L Alkaline Phosphatase 139 H (38-126) U/L Serum Total Protein 7.2 (6.3-8.2) g/dL Albumin 3.9 (3.5-5.0) g/dL Urine Color (Yellow) Urine Appearance (Clear) Urine pH (4.6-8.0) Ur Specific [place] (1.005-1.030) Urine Protein (Negative) Urine Glucose (UA) (Negative) mg/dL Urine Ketones (Negative) Urine Blood (Negative) Urine Nitrite (Negative) Urine Bilirubin (Negative) Urine Urobilinogen (0.2) mg/dL Ur Leukocyte Esterase (Negative) U Hyaline Cast (Auto) (0-2) /LPF Urine Microscopic RBC (0-5) /HPF Urine Microscopic WBC (0-5) /HPF Ur Epithelial Cells (None Seen) /HPF Urine Bacteria (None Seen) /HPF Urine Culture Reflexed (NO) Ur Random Creatinine mg/dl U Random Total Protein (<12) mg/dl U [place] Prot/Creat Ratio (0.0-0.15) mg/mg Urine Opiates Level NEGATIVE (NEGATIVE) Ur Methadone NEGATIVE (NEGATIVE) Urine Barbiturates NEGATIVE (NEGATIVE) Ur Phencyclidine (PCP) NEGATIVE (NEGATIVE) Urine Amphetamine NEGATIVE (NEGATIVE) U Benzodiazepine Level NEGATIVE (NEGATIVE) Urine Cocaine NEGATIVE (NEGATIVE) Urine Marijuana (THC) NEGATIVE (NEGATIVE) ABO Group Rh Factor Antibody Screen (NEGATIVE) 12/05/22 12/05/22 12/05/22 Range/Units 18:15 18:15 20:20 WBC (4.0-10.5) x10^3/uL RBC (4.1-5.4) x10^6/uL Hgb (12.0-16.0) g/dL Hct (35-47) % MCV (78-100) fL MCH (26-32) pg MCHC (32-36) g/dL RDW (11.5-14.0) % Plt Count (150-450) x10^3/uL MPV (7.5-11.0) fL Gran % (36.0-66.0) % Immature Gran % (Auto) (0.00-0.4) % Nucleat RBC Rel Count (0.00-0.1) % Eos # (Auto) (0-0.5) x10^3/uL Immature Gran # (Auto) (0.00-0.03) x10^3u/L Absolute Lymphs (auto) (1.0-4.6) x10^3/uL Absolute Monos (auto) (0.0-1.3) x10^3/uL Absolute Nucleated RBC (0.00-0.01) x10^3u/L Lymphocytes % (24.0-44.0) % Monocytes % (0.0-12.0) % Eosinophils % (0.00-5.0) % Basophils % (0.0-0.4) % Absolute Granulocytes (1.4-6.9) x10^3/uL Basophils # (0-0.4) x10^3/uL Sodium (137-145) mmol/L Potassium (3.5-5.1) mmol/L Chloride (98-107) mmol/L Carbon Dioxide (22-30) mmol/L Anion Gap (5-15) MEQ/L BUN (7-17) mg/dL Creatinine (0.52-1.04) mg/dL Estimated GFR ML/MIN Glucose (74-106) mg/dL Uric Acid 3.2 (2.6-6.0) mg/dL Calcium (8.4-10.2) mg/dL Total Bilirubin (0.2-1.3) mg/dL AST (14-36) U/L ALT (0-35) U/L Alkaline Phosphatase (38-126) U/L Serum Total Protein (6.3-8.2) g/dL Albumin (3.5-5.0) g/dL Urine Color Yellow (Yellow) Urine Appearance Clear (Clear) Urine pH 7.5 (4.6-8.0) Ur Specific [place] <=1.005 (1.005-1.030) Urine Protein Negative (Negative) Urine Glucose (UA) Negative (Negative) mg/dL Urine Ketones Negative (Negative) Urine Blood Negative (Negative) Urine Nitrite Negative (Negative) Urine Bilirubin Negative (Negative) Urine Urobilinogen 1.0 A (0.2) mg/dL Ur Leukocyte Esterase Trace A (Negative) U Hyaline Cast (Auto) NONE SEEN (0-2) /LPF Urine Microscopic RBC 0-2 (0-5) /HPF Urine Microscopic WBC 3-5 (0-5) /HPF Ur Epithelial Cells None Seen (None Seen) /HPF Urine Bacteria Rare A (None Seen) /HPF Urine Culture Reflexed ORDERED SEPARATELY (NO) Ur Random Creatinine 121.5 mg/dl U Random Total Protein 20.0 (<12) mg/dl U [place] Prot/Creat Ratio 0.16 H (0.0-0.15) mg/mg Urine Opiates Level (NEGATIVE) Ur Methadone (NEGATIVE) Urine Barbiturates (NEGATIVE) Ur Phencyclidine (PCP) (NEGATIVE) Urine Amphetamine (NEGATIVE) U Benzodiazepine Level (NEGATIVE) Urine Cocaine (NEGATIVE) Urine Marijuana (THC) (NEGATIVE) ABO Group Rh Factor Antibody Screen (NEGATIVE) 12/05/22 Range/Units 20:50 WBC (4.0-10.5) x10^3/uL RBC (4.1-5.4) x10^6/uL Hgb (12.0-16.0) g/dL Hct (35-47) % MCV (78-100) fL MCH (26-32) pg MCHC (32-36) g/dL RDW (11.5-14.0) % Plt Count (150-450) x10^3/uL MPV (7.5-11.0) fL Gran % (36.0-66.0) % Immature Gran % (Auto) (0.00-0.4) % Nucleat RBC Rel Count (0.00-0.1) % Eos # (Auto) (0-0.5) x10^3/uL Immature Gran # (Auto) (0.00-0.03) x10^3u/L Absolute Lymphs (auto) (1.0-4.6) x10^3/uL Absolute Monos (auto) (0.0-1.3) x10^3/uL Absolute Nucleated RBC (0.00-0.01) x10^3u/L Lymphocytes % (24.0-44.0) % Monocytes % (0.0-12.0) % Eosinophils % (0.00-5.0) % Basophils % (0.0-0.4) % Absolute Granulocytes (1.4-6.9) x10^3/uL Basophils # (0-0.4) x10^3/uL Sodium (137-145) mmol/L Potassium (3.5-5.1) mmol/L Chloride (98-107) mmol/L Carbon Dioxide (22-30) mmol/L Anion Gap (5-15) MEQ/L BUN (7-17) mg/dL Creatinine (0.52-1.04) mg/dL Estimated GFR ML/MIN Glucose (74-106) mg/dL Uric Acid (2.6-6.0) mg/dL Calcium (8.4-10.2) mg/dL Total Bilirubin (0.2-1.3) mg/dL AST (14-36) U/L ALT (0-35) U/L Alkaline Phosphatase (38-126) U/L Serum Total Protein (6.3-8.2) g/dL Albumin (3.5-5.0) g/dL Urine Color (Yellow) Urine Appearance (Clear) Urine pH (4.6-8.0) Ur Specific [place] (1.005-1.030) Urine Protein (Negative) Urine Glucose (UA) (Negative) mg/dL Urine Ketones (Negative) Urine Blood (Negative) Urine Nitrite (Negative) Urine Bilirubin (Negative) Urine Urobilinogen (0.2) mg/dL Ur Leukocyte Esterase (Negative) U Hyaline Cast (Auto) (0-2) /LPF Urine Microscopic RBC (0-5) /HPF Urine Microscopic WBC (0-5) /HPF Ur Epithelial Cells (None Seen) /HPF Urine Bacteria (None Seen) /HPF Urine Culture Reflexed (NO) Ur Random Creatinine mg/dl U Random Total Protein (<12) mg/dl U [place] Prot/Creat Ratio (0.0-0.15) mg/mg Urine Opiates Level (NEGATIVE) Ur Methadone (NEGATIVE) Urine Barbiturates (NEGATIVE) Ur Phencyclidine (PCP) (NEGATIVE) Urine Amphetamine (NEGATIVE) U Benzodiazepine Level (NEGATIVE) Urine Cocaine (NEGATIVE) Urine Marijuana (THC) (NEGATIVE) ABO Group AB Rh Factor POSITIVE Antibody Screen NEGATIVE (NEGATIVE) Assessment/Plan (1) Pre-eclampsia Current Visit: Yes Status: Acute Code(s): O14.90 - UNSPECIFIED PRE- ECLAMPSIA, UNSPECIFIED TRIMESTER (2) Vaginal delivery Current Visit: No Status: Acute Code(s): O80 - ENCOUNTER FOR FULL-TERM UNCOMPLICATED DELIVERY
[2022-12-06] MEDS ORDERED: TUCKS TP ONE (09:30)
[2022-12-06] MEDS: TUCKS TP PRN ×2 (09:31→15:09)
--- NOTE | 2022-12-06 09:31 | PCM.DS ---
Discharge Summary Date of Admission: 12/05/22 18:24 Admitting Physician: KATHRYN DICKENS DO Consults: Consults on Case 12/05/22 18:40 Notify Anesthesia Provider PRN 12/06/22 02:16 Notify Physician ROUTINE Primary Care Provider: FABIAN WEST Allergies Allergies No Known Drug Allergies Allergy (Verified 05/27/22 12:09) Hospital Summary - Hospital Course Hospital Course: pt admitted on dec 05 at 38 wks gestation with current hx of preeclampsia with elevated bp in office with diastolic mid 90's and co headache and hx of preeclampsia with last two pregnancys. pt was started on pitocin with arom and subsequently delivered live baby girl. baby was transferred to [place] for transient tachypnea and pt desires to be discharged home today. pt advised to fu in office in 1 wk for bp evaluation. all questions answered to her satisfaction and was advised to fu in office in 1 wk. - Vitals & Intake/Output Vital Signs: Vital Signs Temperature 98.6 F 12/05/22 21:09 Pulse Rate 86 12/05/22 22:15 Respiratory Rate 18 12/05/22 22:15 Blood Pressure 140/86 12/05/22 22:15 O2 Sat by Pulse Oximetry Intake & Output: Intake & Output 12/03/22 12/04/22 12/05/22 12/06/22 11:59 11:59 11:59 11:59 Weight 76.657 kg - Lab Result Diagrams: 12/05/22 18:15 12/05/22 18:15 Lab Results-Last 24 Hrs: Lab Results-Last 24 Hours 12/05/22 12/05/22 12/05/22 Range/Units 16:40 18:15 18:15 WBC 12.0 H (4.0-10.5) x10^3/uL RBC 3.65 L (4.1-5.4) x10^6/uL Hgb 8.8 L (12.0-16.0) g/dL Hct 29.8 L (35-47) % MCV 81.6 (78-100) fL MCH 24.1 L (26-32) pg MCHC 29.5 L (32-36) g/dL RDW 15.8 H (11.5-14.0) % Plt Count 421 (150-450) x10^3/uL MPV 10.8 (7.5-11.0) fL Gran % 66.9 H (36.0-66.0) % Immature Gran % (Auto) 0.5 H (0.00-0.4) % Nucleat RBC Rel Count 0.0 (0.00-0.1) % Eos # (Auto) 0.25 (0-0.5) x10^3/uL Immature Gran # (Auto) 0.06 H (0.00-0.03) x10^3u/L Absolute Lymphs (auto) 2.45 (1.0-4.6) x10^3/uL Absolute Monos (auto) 1.17 (0.0-1.3) x10^3/uL Absolute Nucleated RBC 0.00 (0.00-0.01) x10^3u/L Lymphocytes % 20.4 L (24.0-44.0) % Monocytes % 9.8 (0.0-12.0) % Eosinophils % 2.1 (0.00-5.0) % Basophils % 0.3 (0.0-0.4) % Absolute Granulocytes 8.03 H (1.4-6.9) x10^3/uL Basophils # 0.03 (0-0.4) x10^3/uL Sodium 137 (137-145) mmol/L Potassium 3.2 L (3.5-5.1) mmol/L Chloride 104 (98-107) mmol/L Carbon Dioxide 21 L (22-30) mmol/L Anion Gap 14.1 (5-15) MEQ/L BUN 3 L (7-17) mg/dL Creatinine 0.36 L (0.52-1.04) mg/dL Estimated GFR > 60.0 ML/MIN Glucose 109 H (74-106) mg/dL Uric Acid (2.6-6.0) mg/dL Calcium 8.9 (8.4-10.2) mg/dL Total Bilirubin 0.60 (0.2-1.3) mg/dL AST 25 (14-36) U/L ALT 15 (0-35) U/L Alkaline Phosphatase 139 H (38-126) U/L Serum Total Protein 7.2 (6.3-8.2) g/dL Albumin 3.9 (3.5-5.0) g/dL Urine Color (Yellow) Urine Appearance (Clear) Urine pH (4.6-8.0) Ur Specific [place] (1.005-1.030) Urine Protein (Negative) Urine Glucose (UA) (Negative) mg/dL Urine Ketones (Negative) Urine Blood (Negative) Urine Nitrite (Negative) Urine Bilirubin (Negative) Urine Urobilinogen (0.2) mg/dL Ur Leukocyte Esterase (Negative) U Hyaline Cast (Auto) (0-2) /LPF Urine Microscopic RBC (0-5) /HPF Urine Microscopic WBC (0-5) /HPF Ur Epithelial Cells (None Seen) /HPF Urine Bacteria (None Seen) /HPF Urine Culture Reflexed (NO) Ur Random Creatinine mg/dl U Random Total Protein (<12) mg/dl U [place] Prot/Creat Ratio (0.0-0.15) mg/mg Urine Opiates Level NEGATIVE (NEGATIVE) Ur Methadone NEGATIVE (NEGATIVE) Urine Barbiturates NEGATIVE (NEGATIVE) Ur Phencyclidine (PCP) NEGATIVE (NEGATIVE) Urine Amphetamine NEGATIVE (NEGATIVE) U Benzodiazepine Level NEGATIVE (NEGATIVE) Urine Cocaine NEGATIVE (NEGATIVE) Urine Marijuana (THC) NEGATIVE (NEGATIVE) ABO Group Rh Factor Antibody Screen (NEGATIVE) 12/05/22 12/05/22 12/05/22 Range/Units 18:15 18:15 20:20 WBC (4.0-10.5) x10^3/uL RBC (4.1-5.4) x10^6/uL Hgb (12.0-16.0) g/dL Hct (35-47) % MCV (78-100) fL MCH (26-32) pg MCHC (32-36) g/dL RDW (11.5-14.0) % Plt Count (150-450) x10^3/uL MPV (7.5-11.0) fL Gran % (36.0-66.0) % Immature Gran % (Auto) (0.00-0.4) % Nucleat RBC Rel Count (0.00-0.1) % Eos # (Auto) (0-0.5) x10^3/uL Immature Gran # (Auto) (0.00-0.03) x10^3u/L Absolute Lymphs (auto) (1.0-4.6) x10^3/uL Absolute Monos (auto) (0.0-1.3) x10^3/uL Absolute Nucleated RBC (0.00-0.01) x10^3u/L Lymphocytes % (24.0-44.0) % Monocytes % (0.0-12.0) % Eosinophils % (0.00-5.0) % Basophils % (0.0-0.4) % Absolute Granulocytes (1.4-6.9) x10^3/uL Basophils # (0-0.4) x10^3/uL Sodium (137-145) mmol/L Potassium (3.5-5.1) mmol/L Chloride (98-107) mmol/L Carbon Dioxide (22-30) mmol/L Anion Gap (5-15) MEQ/L BUN (7-17) mg/dL Creatinine (0.52-1.04) mg/dL Estimated GFR ML/MIN Glucose (74-106) mg/dL Uric Acid 3.2 (2.6-6.0) mg/dL Calcium (8.4-10.2) mg/dL Total Bilirubin (0.2-1.3) mg/dL AST (14-36) U/L ALT (0-35) U/L Alkaline Phosphatase (38-126) U/L Serum Total Protein (6.3-8.2) g/dL Albumin (3.5-5.0) g/dL Urine Color Yellow (Yellow) Urine Appearance Clear (Clear) Urine pH 7.5 (4.6-8.0) Ur Specific [place] <=1.005 (1.005-1.030) Urine Protein Negative (Negative) Urine Glucose (UA) Negative (Negative) mg/dL Urine Ketones Negative (Negative) Urine Blood Negative (Negative) Urine Nitrite Negative (Negative) Urine Bilirubin Negative (Negative) Urine Urobilinogen 1.0 A (0.2) mg/dL Ur Leukocyte Esterase Trace A (Negative) U Hyaline Cast (Auto) NONE SEEN (0-2) /LPF Urine Microscopic RBC 0-2 (0-5) /HPF Urine Microscopic WBC 3-5 (0-5) /HPF Ur Epithelial Cells None Seen (None Seen) /HPF Urine Bacteria Rare A (None Seen) /HPF Urine Culture Reflexed ORDERED SEPARATELY (NO) Ur Random Creatinine 121.5 mg/dl U Random Total Protein 20.0 (<12) mg/dl U [place] Prot/Creat Ratio 0.16 H (0.0-0.15) mg/mg Urine Opiates Level (NEGATIVE) Ur Methadone (NEGATIVE) Urine Barbiturates (NEGATIVE) Ur Phencyclidine (PCP) (NEGATIVE) Urine Amphetamine (NEGATIVE) U Benzodiazepine Level (NEGATIVE) Urine Cocaine (NEGATIVE) Urine Marijuana (THC) (NEGATIVE) ABO Group Rh Factor Antibody Screen (NEGATIVE) 12/05/22 Range/Units 20:50 WBC (4.0-10.5) x10^3/uL RBC (4.1-5.4) x10^6/uL Hgb (12.0-16.0) g/dL Hct (35-47) % MCV (78-100) fL MCH (26-32) pg MCHC (32-36) g/dL RDW (11.5-14.0) % Plt Count (150-450) x10^3/uL MPV (7.5-11.0) fL Gran % (36.0-66.0) % Immature Gran % (Auto) (0.00-0.4) % Nucleat RBC Rel Count (0.00-0.1) % Eos # (Auto) (0-0.5) x10^3/uL Immature Gran # (Auto) (0.00-0.03) x10^3u/L Absolute Lymphs (auto) (1.0-4.6) x10^3/uL Absolute Monos (auto) (0.0-1.3) x10^3/uL Absolute Nucleated RBC (0.00-0.01) x10^3u/L Lymphocytes % (24.0-44.0) % Monocytes % (0.0-12.0) % Eosinophils % (0.00-5.0) % Basophils % (0.0-0.4) % Absolute Granulocytes (1.4-6.9) x10^3/uL Basophils # (0-0.4) x10^3/uL Sodium (137-145) mmol/L Potassium (3.5-5.1) mmol/L Chloride (98-107) mmol/L Carbon Dioxide (22-30) mmol/L Anion Gap (5-15) MEQ/L BUN (7-17) mg/dL Creatinine (0.52-1.04) mg/dL Estimated GFR ML/MIN Glucose (74-106) mg/dL Uric Acid (2.6-6.0) mg/dL Calcium (8.4-10.2) mg/dL Total Bilirubin (0.2-1.3) mg/dL AST (14-36) U/L ALT (0-35) U/L Alkaline Phosphatase (38-126) U/L Serum Total Protein (6.3-8.2) g/dL Albumin (3.5-5.0) g/dL Urine Color (Yellow) Urine Appearance (Clear) Urine pH (4.6-8.0) Ur Specific [place] (1.005-1.030) Urine Protein (Negative) Urine Glucose (UA) (Negative) mg/dL Urine Ketones (Negative) Urine Blood (Negative) Urine Nitrite (Negative) Urine Bilirubin (Negative) Urine Urobilinogen (0.2) mg/dL Ur Leukocyte Esterase (Negative) U Hyaline Cast (Auto) (0-2) /LPF Urine Microscopic RBC (0-5) /HPF Urine Microscopic WBC (0-5) /HPF Ur Epithelial Cells (None Seen) /HPF Urine Bacteria (None Seen) /HPF Urine Culture Reflexed (NO) Ur Random Creatinine mg/dl U Random Total Protein (<12) mg/dl U [place] Prot/Creat Ratio (0.0-0.15) mg/mg Urine Opiates Level (NEGATIVE) Ur Methadone (NEGATIVE) Urine Barbiturates (NEGATIVE) Ur Phencyclidine (PCP) (NEGATIVE) Urine Amphetamine (NEGATIVE) U Benzodiazepine Level (NEGATIVE) Urine Cocaine (NEGATIVE) Urine Marijuana (THC) (NEGATIVE) ABO Group AB Rh Factor POSITIVE Antibody Screen NEGATIVE (NEGATIVE) Final Diagnosis/Problem List - Final Discharge Diagnosis/Problem (1) Pre-eclampsia Current Visit: Yes Status: Acute Code(s): O14.90 - UNSPECIFIED PRE- ECLAMPSIA, UNSPECIFIED TRIMESTER (2) Vaginal delivery Current Visit: No Status: Acute Code(s): O80 - ENCOUNTER FOR FULL-TERM UNCOMPLICATED DELIVERY - Discharge Disposition: Home, Self-Care Condition: Stable Prescriptions: New Ferrous Sulfate 325 mg PO BID #60 tablet No Action Potassium Chloride 20 meq PO BID Follow up with: FABIAN WEST [Primary Care Provider] - KATHRYN DICKENS DO [ACTIVE STAFF] - 1 Week (should fu in office in 1 wk for bp check)
[2022-12-06] MEDS ORDERED: FERREX 150 PO SCH (10:00)
[2022-12-06] MEDS ORDERED: Docusate Sodium 100 MG PO SCH (10:00)
[2022-12-06 14:25] VITALS: PULSE 89
[2022-12-09 09:56] VITALS: BP 144/86
== END 2022-12-06 12:40 | disposition home or self-care (01) | DRG 807 ==
LOC: OB 18:01 → OBSVTOIN 18:24
PROVIDERS: ADMIT Obstetrics & Gynecology; ATTEND Obstetrics & Gynecology
PROC: 10E0XZZ Delivery of Products of Conception, External Approach (ICD-10-PCS; principal; 2022-12-06)
DX: O14.94 Unspecified pre-eclampsia, complicating childbirth (principal); Z37.0 Single live birth; R51.9 Headache, unspecified; Z3A.38 38 weeks gestation of pregnancy; Z20.828 Contact with and (suspected) exposure to other viral communicable diseases
CPT/HCPCS: 36415; 59409; 80053; 80307; 81001; 82570; 84156; 84550; 85025; 85027; 86850; 86900; 86901; 87077; 87086; 87186; G0378; J2590; A9270-GY

== ENCOUNTER 2023-03-23 04:23 | Emergency (ER) | payer OTHER ==
[2023-03-23] MEDS ORDERED: TYLENOL 325 MG PO STA (04:40)
[2023-03-23] MEDS ORDERED: TYLENOL 325 MG ONE (04:41)
[2023-03-23 04:43] VITALS: RESP 18; TEMP 102.6
[2023-03-23 05:04] VITALS: O2SAT 96
[2023-03-23 05:21] LABS: Group A Strep NOT DETECTED (NEGATIVE)
[2023-03-23 05:23] LABS: ADD URINE CULTURE? YES (NO); Appearance Cloudy (Clear); Bacteria Moderate /HPF (None Seen); Bilirubin Small (Negative); Blood Small (Negative); Epithelial Cells Moderate /HPF (None Seen); Glucose, Urine Negative (Negative); Ketones Negative (Negative); Leukocyte Esterase Large (Negative); Nitrite Positive (Negative); Ph 5.5 (4.6-8.0); Protein,Urine Dip 30 (Negative); RBC 0-2 /HPF (0-5); Specific Gravity 1.015 (1.005-1.030); WBC >100 /HPF (0-5)
[2023-03-23 05:32] LABS: INFLUENZA A NEGATIVE (NEGATIVE); INFLUENZA B NEGATIVE (NEGATIVE); RESPIRATORY SYNCTIAL VIRUS NEGATIVE (NEGATIVE); SARS-CoV-2 Xpert Express NEGATIVE (NEGATIVE)
[2023-03-23] MEDS ORDERED: Rocephin 1000 MG INJ IM ONE (05:54)
[2023-03-23] MEDS ORDERED: Rocephin 1000 MG INJ ONE (05:57)
[2023-03-23] MEDS ORDERED: XYLOCAINE 1% HCL 20 ML MDV ONE (05:58)
--- NOTE | 2023-03-23 05:59 | ERPHSYRPT ---
- History of Present Illness Time Seen by Provider: 03/23/23 05:55 Source: patient Exam Limitations: no limitations Patient Subjective Stated Complaint: pt states that she feels like she has a UTI. pt states fever, chills, body aches Triage Nursing Assessment: pt ambulated into the er; pt is axo x4; skin PDW; no respiratory distress present; febrile; tachycardic; active bowel sounds; pt denies V/D; c/o nausea Physician History: pt states that she feels like she has a UTI. pt states fever, chills, body aches, Patient has a frequent urinary tract infection. In the last 1 year patient has a proximately 8 urinary tract infection episode which usually organism growth he is history of coli. Timing/Duration: day(s) Associated Symptoms: denies symptoms Allergies/Adverse Reactions: No Known Drug Allergies Allergy (Verified 03/23/23 04:32) Hx Tetanus, Diphtheria Vaccination/Date Given: Yes Hx Influenza Vaccination/Date Given: No Hx Pneumococcal Vaccination/Date Given: No Travel Risk - International Travel Have you traveled outside of the country in past 3 weeks: No - Coronavirus Screening Are you exhibiting any of the following symptoms?: Yes Symptoms: Fever, Headaches/Body Aches/Fatigue Close contact with a COVID-19 positive Pt in past 14-21 Days: No - Vaccine Status Have you recieved a Covid-19 vaccination: Yes 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[employer] - Vaccination Dates Date of 2cond Vaccination (if applicable): 02/25/2022 - Review of Systems Constitutional: Fever, Chills Eyes: No Symptoms Ears, Nose, & Throat: No Symptoms Respiratory: No Cough, No Dyspnea Cardiac: No Chest Pain, No Edema, No Syncope Abdominal/Gastrointestinal: No Abdominal Pain, No Nausea, No Vomiting, No Diarrhea Genitourinary Symptoms: No Dysuria Musculoskeletal: No Back Pain, No Neck Pain Skin: No Rash Neurological: No Dizziness, No Focal Weakness, No Sensory Changes Psychological: No Symptoms Endocrine: No Symptoms All Other Systems: Reviewed and Negative - Past Medical History Pertinent Past Medical History: Yes Neurological History: No Pertinent History ENT History: No Pertinent History Cardiac History: No Pertinent History Respiratory History: No Pertinent History Endocrine Medical History: No Pertinent History Musculoskeletal History: No Pertinent History GI Medical History: No Pertinent History History: No Pertinent History Psycho-Social History: Anxiety Female Reproductive Disorders: No Pertinent History Other Medical History: preeclampsia and electrolyte imbalances with PREVIOUS - Past Surgical History Past Surgical History: Yes Neuro Surgical History: No Pertinent History Cardiac: No Pertinent History Respiratory: No Pertinent History Gastrointestinal: No Pertinent History Genitourinary: No Pertinent History Musculoskeletal: No Pertinent History Female Surgical History: No Pertinent History Other Surgical History: wisdom teeth removed - Social History Smoking Status: Never smoker Exposure to second hand smoke: No Alcohol Use: None Drug Use: none Patient Lives Alone: No Significant Family History: no pertinent family hx - Female History Hx Now: No - Nursing Vital Signs Nursing Vital Signs: Initial Vital Signs Blood Pressure 126/81 03/23/23 04:32 O2 Sat by Pulse Oximetry 96 03/23/23 04:32 Pain Scale Pain Intensity 4 - Physical Exam General Appearance: no apparent distress, alert Eye Exam: PERRL/EOMI, eyes nml inspection Ears, Nose, Throat Exam: normal ENT inspection, TMs normal, pharynx normal, moist mucous membranes Neck Exam: normal inspection, non-tender, supple, full range of motion Respiratory Exam: normal breath sounds, lungs clear, No respiratory distress Cardiovascular Exam: regular rate/rhythm, normal heart sounds, normal peripheral pulses Gastrointestinal/Abdomen Exam: soft, normal bowel sounds, No tenderness, No mass Back Exam: normal inspection, normal range of motion, No CVA tenderness, No vertebral tenderness Extremity Exam: normal inspection, normal range of motion, pelvis stable Neurologic Exam: alert, oriented x 3, cooperative, normal mood/affect, nml cerebellar function, nml station & gait, sensation nml, No motor deficits Skin Exam: normal color, warm, dry, No rash Lymphatic Exam: No adenopathy SpO2: 96 - Course Nursing assessment & vital signs reviewed: Yes Ordered Tests: Active Orders 24 hr Category Date Time Status CULTURE,URINE Stat Lab 03/23/23 04:27 Received UA W/RFX UR CULTURE Stat Lab 03/23/23 04:27 Completed Medication Summary Discontinued Medications Generic Name Dose Route Start Last Admin Trade Name Yves PRN Reason Stop Dose Admin Acetaminophen 650 mg 03/23/23 04:40 03/23/23 04:42 Acetaminophen 325 Mg Tablet PO 03/23/23 04:41 650 mg STAT STA Administration Acetaminophen Confirm 03/23/23 04:41 Acetaminophen 325 Mg Tablet Administered 03/23/23 04:42 Dose 650 mg .ROUTE .STK-MED ONE Ceftriaxone Sodium 1,000 mg 03/23/23 05:54 03/23/23 06:00 Ceftriaxone Sodium 1000 Mg Inj Vial IM 03/23/23 05:55 1,000 mg STAT ONE Administration Ceftriaxone Sodium Confirm 03/23/23 05:57 Ceftriaxone Sodium 1000 Mg Inj Vial Administered 03/23/23 05:58 Dose 1,000 mg .ROUTE .STK-MED ONE Lidocaine HCl Confirm 03/23/23 05:58 Lidocaine Hcl 1% 20 Ml Mdv 20 Ml Ml Administered 03/23/23 05:59 Dose 3 ml .ROUTE .STK-MED ONE Lab/Rad Data: Laboratory Results 03/23/23 03/23/23 Range/Units 04:54 04:27 Urine Color Dark Yellow A (Yellow) Urine Appearance Cloudy A (Clear) Urine pH 5.5 (4.6-8.0) Ur Specific [place] 1.015 (1.005-1.030) Urine Protein 30 (Negative) Urine Glucose (UA) Negative (Negative) mg/dL Urine Ketones Negative (Negative) Urine Blood Small A (Negative) Urine Nitrite Positive A (Negative) Urine Bilirubin Small A (Negative) Urine Urobilinogen 1.0 A (0.2) mg/dL Ur Leukocyte Esterase Large A (Negative) U Hyaline Cast (Auto) 3-5 A (0-2) /LPF Urine Microscopic RBC 0-2 (0-5) /HPF Urine Microscopic WBC >100 A (0-5) /HPF Ur Epithelial Cells Moderate A (None Seen) /HPF Urine Bacteria Moderate A (None Seen) /HPF Urine Culture Reflexed YES (NO) Influenza Type A Ag NEGATIVE (NEGATIVE) Influenza Type B Ag NEGATIVE (NEGATIVE) RSV (PCR) NEGATIVE (NEGATIVE) SARS-CoV-2 (PCR) NEGATIVE (NEGATIVE) Group A Strep Antibody NOT DETECTED (NEGATIVE) - Progress Progress: unchanged Progress Note: 03/23/23 06:18 Patient has a recurrent multiple episode of urinary tract infections for last 4 years. Patient has a episiotomy during her first and afterwards patient has recurrent UTI even during her . Few times patient has a catheterized urine and it was still showing E. coli in her urine. I advised patient to be seen by either urologist or urogynecologist for further evaluation of possible fistula formation in between rectum and vagina Counseled pt/family regarding: lab results, diagnosis, need for follow-up Medical Desision Making - Diagnostic Testing Diagnostic test were ordered, analyzed, and reviewed by me: Yes - Risk of complications Minimal Risk: Minimal risk of morbidity - Departure Departure Disposition: Home Clinical Impression: Pyelonephritis Condition: Stable Critical Care Time: No Referrals: FABIAN WEST [Primary Care Provider] - Follow up/PCP as directed Instructions: Urinary Tract Infection, Adult (DC) Additional Instructions: Discharge/Care Plan MAIK LEONG was seen on 03/23/23 in the Emergency Room. The patient was counseled regarding Diagnosis,Lab results, Imaging studies, need for follow up and when to return to the Emergency Room. Prescriptions given: Discharge Note I have spoken with the patient and/or caregivers. I have explained the patient's condition, diagnosis and treatment plan based on the information available to me at this time. I have answered the patient's and/or caregiver's questions and addressed any concerns. The patient and/or caregivers have as good understanding of the patient's diagnosis, condition and treatment plan as can be expected at this point. The vital signs have been stable. The patient's condition is stable and appropriate for discharge from the emergency department. The patient will pursue further outpatient evaluation with the primary care physician or other designated or consulting physician as outlined in the cary veliz instructions. The patient and/or caregivers are agreeable to this plan of care and follow-up instructions have been explained in detail. The patient and/or caregivers have received these instruction. The patient/and or caregivers are aware that any significant change in condition or worsening of symptoms should prompt an immediate return to this or the closest emergency department or call 911. MAIK LEONG was seen on 03/23/23 n the Emergency Room. At that time you were treated for an emergent condition, during your visit Laboratory, Radiology and/or other procedures may have been ordered. It is very important that you follow-up with your Primary Care Physician FABIAN WEST within the next 24-48 hours to review your Emergency Room visit and the final results of testing that was ordered. Some test results such as Urine Cultures, Blood Cultures, and other cultures if ordered will not be finalized for 24-48 hours. If you do not have a Primary Care Provider please call the medical records department at [phone] to obtain a copy of your results or you may sign into our patient portal to obtain these results by visiting us @ [email or web address] and completing the following steps: 1. Click on the Patient Portal link 2. Click the Patient Self Enrollment Link to complete the enrollment form and entering your 3. Once the enrollment form is completed you will receive an email with a temporary ID and password at the email address you provided. 4. Next choose a user name and password. Your user name must be at least 4 characters long and your password must be at least 4 characters long. 5. Choose a security question from the list and provide your answer to the question. If you already have signed into the Health Portal you may access your Health Care Information 14/10 by the following steps: 1. Login to our website @ [email or web address] 2. Enter your original user name and password. FAQS The [facility] Health Portal is an online tool that contains your Lab Results, Radiology Reports, Visit History, Discharge Instructions and Health Summary Lab and Radiology Results will not be available for 72 hours on the portal. The Portal is a secure site, passwords are encryted and URLs are re-written so they cannot be copied and pasted. You and authorized family members are the only ones who can access your Portal. Also there is a timeout feature that protects your information if you leave the Portal page open. If you have technical difficulty please use the Contact Us link on the page this will allow you to submit any questions you have regarding the Portal or you may contact the Medical Record Department at [phone]. Prescriptions: Cefdinir 300 mg PO BID #20 cap
[2023-03-23 06:45] VITALS: BP 131/82; PULSE 108
== END 2023-03-23 06:45 | disposition home or self-care (01) ==
LOC: ED 04:23
DX: N12 Tubulo-interstitial nephritis, not specified as acute or chronic (principal); R50.9 Fever, unspecified; M79.10 Myalgia, unspecified site
CPT/HCPCS: 0241U; 81001; 87077; 87086; 87186; 87651; 96372; 99283; J0696; A9270-GY

== ENCOUNTER 2023-08-08 05:01 | Emergency (ER) | payer OTHER ==
[2023-08-08 05:20] VITALS: TEMP 98.6
[2023-08-08 05:25] LABS: Appearance Cloudy (Clear); Bacteria Rare /HPF (None Seen); Bilirubin Negative (Negative); Blood Negative (Negative); Epithelial Cells Moderate /HPF (None Seen); Glucose, Urine Negative (Negative); Hyaline Casts NONE SEEN /LPF (0-2); Ketones Negative (Negative); Leukocyte Esterase Small (Negative); Nitrite Negative (Negative); Protein,Urine Dip Negative (Negative); Specific Gravity 1.015 (1.005-1.030); Urobilinogen 0.2 mg/dL (0.2)
[2023-08-08 05:26] LABS: ADD URINE CULTURE? YES (NO)
[2023-08-08] MEDS ORDERED: Sodium Chloride 0.9% 1000 ML 1,000 ML ONE (05:47)
[2023-08-08] MEDS ORDERED: Zofran 4 MG/2 ML VIAL ONE (05:47)
[2023-08-08] MEDS ORDERED: TORAdol 30 mg Injection ONE (05:47)
[2023-08-08] MEDS: TORAdol 30 mg Injection IV ONE (05:48)
[2023-08-08] MEDS: Sodium Chloride 0.9% 1000 ML 1,000 ML IV STA (05:48)
[2023-08-08] MEDS: Zofran 4 MG/2 ML VIAL IV ONE (05:49)
--- NOTE | 2023-08-08 05:50 | ERPHSYRPT ---
- History of Present Illness Historian: patient Exam Limitations: no limitations Patient Subjective Stated Complaint: pelvic pain and R sided flank pain, pt has kidney stone and a kidney infection 2 months ago and patient states pain is the same Triage Nursing Assessment: pt ambulatory to bed by self with steady gait, pt alert and oriented x3, skin pwd, pt c/o flank pain that radiates to R sided pelvic pain, pt states symptoms started yesterday morning, last BM was 08/07/23, last oral intake was 1999 Hx Tetanus, Diphtheria Vaccination/Date Given: Yes Hx Influenza Vaccination/Date Given: No Hx Pneumococcal Vaccination/Date Given: No Immunizations Up to Date: No <DAVID TONG - Last Filed: 08/08/23 06:36> <ARIANA THOMPSON - Last Filed: 08/08/23 07:53> - History of Present Illness Time Seen by Provider: 08/08/23 05:43 Physician History: 27-year-old female with history of recurrent UTIs and kidney stones presented in the ER with complains of right lower back/pelvic pain started yesterday morning and gradually in the wall of the right flank area moderate intensity sharp pain with increased urinary frequency and nausea but no vomiting. Reports having similar symptoms last time with kidney stone. No fever or chills reported. Denies any significant aggravating or relieving factors. No vaginal bleeding or discharge. (DAVID TONG) Allergies/Adverse Reactions: No Known Drug Allergies Allergy (Verified 03/23/23 04:32) Travel Risk - International Travel Have you traveled outside of the country in past 3 weeks: No - Emerging Infectious Disease Are you exhibiting symptoms associated with any current EIDs: No <DAVID TONG - Last Filed: 08/08/23 06:36> - Review of Systems Constitutional: No Symptoms Ears, Nose, & Throat: No Symptoms Respiratory: No Symptoms Cardiac: No Symptoms Abdominal/Gastrointestinal: Abdominal Pain, Nausea Genitourinary Symptoms: Dysuria, Frequency Musculoskeletal: No Symptoms Skin: No Symptoms Neurological: No Symptoms Psychological: No Symptoms Endocrine: No Symptoms Hematologic/Lymphatic: No Symptoms <DAVID TONG - Last Filed: 08/08/23 06:36> - Past Medical History Pertinent Past Medical History: Yes Neurological History: No Pertinent History ENT History: No Pertinent History Cardiac History: No Pertinent History Respiratory History: No Pertinent History Endocrine Medical History: No Pertinent History Musculoskeletal History: No Pertinent History GI Medical History: No Pertinent History History: No Pertinent History Psycho-Social History: Anxiety Female Reproductive Disorders: No Pertinent History Other Medical History: preeclampsia and electrolyte imbalances with PREVIOUS , frequent UTIs, kidney stone - Past Surgical History Past Surgical History: Yes Neuro Surgical History: No Pertinent History Cardiac: No Pertinent History Respiratory: No Pertinent History Gastrointestinal: No Pertinent History Genitourinary: No Pertinent History Musculoskeletal: No Pertinent History Female Surgical History: No Pertinent History Other Surgical History: wisdom teeth removed Significant Family History: no pertinent family hx - Female History Hx Last Menstrual Period: unk- IUD Hx Now: No - Social History Smoking Status: Never smoker Exposure to second hand smoke: No Alcohol Use: None Drug Use: none Patient Lives Alone: No <ALYCIA,DAVID - Last Filed: 08/08/23 06:36> - Physical Exam General Appearance: no apparent distress, alert Eye Exam: PERRL/EOMI Neck Exam: normal inspection, full range of motion Respiratory Exam: normal breath sounds, lungs clear Cardiovascular Exam: regular rate/rhythm, normal heart sounds Gastrointestinal/Abdomen Exam: soft, normal bowel sounds, tenderness (Right flank) Back Exam: CVA tenderness (Right side) Extremity Exam: normal inspection, normal range of motion Neurologic Exam: alert, oriented x 3, cooperative Skin Exam: normal color SpO2 Interpretation: normal SpO2: 98 O2 Delivery: Room Air <ALYCIA,DAVID - Last Filed: 08/08/23 06:36> - Nursing Vital Signs Nursing Vital Signs: Initial Vital Signs Pulse Rate 99 H 08/08/23 05:13 Respiratory Rate 18 08/08/23 05:13 Blood Pressure 143/88 08/08/23 05:13 O2 Sat by Pulse Oximetry 97 08/08/23 05:13 Pain Scale Pain Intensity 7 Ordered Tests: Active Orders 24 hr Category Date Time Status IV Insertion STAT Care 08/08/23 05:43 Active NPO (ED) STAT Care 08/08/23 05:43 Active ABDOMEN AND PELVIS W/0 CONTRAS [CT] Stat Exams 08/08/23 06:41 Taken CBC W DIFF Stat Lab 08/08/23 06:00 Completed CMP Stat Lab 08/08/23 06:00 Completed CULTURE,URINE Stat Lab 08/08/23 05:16 Received HCG QUALITATIVE, URINE Stat Lab 08/08/23 Completed LIPASE Stat Lab 08/08/23 06:00 Completed UA W/RFX UR CULTURE Stat Lab 08/08/23 05:16 Completed Medication Summary Discontinued Medications Generic Name Dose Route Start Last Admin Trade Name Adeelq PRN Reason Stop Dose Admin Sodium Chloride 1,000 mls @ 999 mls/hr 08/08/23 05:43 08/08/23 07:03 Sodium Chloride 0.9% 1000 Ml IV 08/08/23 06:43 Infused .Q1H1M STA Infusion Ceftriaxone Sodium 2 gm in 100 mls @ 200 mls/hr 08/08/23 05:50 08/08/23 06:34 Rocephin 2 Gm/100 Ml Nacl IV 08/08/23 06:19 Infused STAT ONE Infusion Sodium Chloride Confirm 08/08/23 05:47 Sodium Chloride 0.9% 1000 Ml Administered 08/08/23 05:48 Dose 1,000 mls @ ud .ROUTE .STK-MED ONE Ceftriaxone Sodium Confirm 08/08/23 05:58 Rocephin 2 Gm/100 Ml Nacl Administered 08/08/23 05:59 Dose 2 gm in 100 mls @ ud IV .STK-MED ONE Ketorolac Tromethamine 30 mg 08/08/23 05:43 08/08/23 05:48 Ketorolac Tromethamine 30 Mg/Ml Inj IV 08/08/23 05:44 30 mg STAT ONE Administration Ketorolac Tromethamine Confirm 08/08/23 05:47 Ketorolac Tromethamine 30 Mg/Ml Inj Administered 08/08/23 05:48 Dose 30 mg .ROUTE .STK-MED ONE Ondansetron HCl 4 mg 08/08/23 05:43 08/08/23 05:49 Ondansetron Hcl 4 Mg/2 Ml Vial IV 08/08/23 05:44 4 mg STAT ONE Administration Ondansetron HCl Confirm 08/08/23 05:47 Ondansetron Hcl 4 Mg/2 Ml Vial Administered 08/08/23 05:48 Dose 4 mg .ROUTE .STK-MED ONE Lab/Rad Data: Laboratory Result Diagrams 08/08/23 06:00 08/08/23 06:00 Laboratory Results 05/17/24 05/17/24 05/17/24 Range/Units Unknown 06:00 06:00 WBC 10.1 (4.0-10.5) x10^3/uL RBC 4.18 (4.1-5.4) x10^6/uL Hgb 12.2 (12.0-16.0) g/dL Hct 38.0 (35-47) % MCV 90.9 (78-100) fL MCH 29.2 (26-32) pg MCHC 32.1 (32-36) g/dL RDW 12.5 (11.5-14.0) % Plt Count 228 (150-450) x10^3/uL MPV 10.7 (7.5-11.0) fL Gran % 73.7 H (36.0-66.0) % Immature Gran % (Auto) 0.2 (0.00-0.4) % Nucleat RBC Rel Count 0.0 (0.00-0.1) % Eos # (Auto) 0.17 (0-0.5) x10^3/uL Immature Gran # (Auto) 0.02 (0.00-0.03) x10^3u/L Absolute Lymphs (auto) 1.17 (1.0-4.6) x10^3/uL Absolute Monos (auto) 1.26 (0.0-1.3) x10^3/uL Absolute Nucleated RBC 0.00 (0.00-0.01) x10^3u/L Lymphocytes % 11.6 L (24.0-44.0) % Monocytes % 12.5 H (0.0-12.0) % Eosinophils % 1.7 (0.00-5.0) % Basophils % 0.3 (0.0-0.4) % Absolute Granulocytes 7.45 H (1.4-6.9) x10^3/uL Basophils # 0.03 (0-0.4) x10^3/uL Sodium 142 (135-145) mmol/L Potassium 4.0 (3.5-5.1) mmol/L Chloride 109 H (98-107) mmol/L Carbon Dioxide 28 (22-30) mmol/L Anion Gap 9.4 (5-15) MEQ/L BUN 21 H (7-17) mg/dL Creatinine 0.71 (0.52-1.04) mg/dL Estimated GFR 120.9 ML/MIN Glucose 99 (74-106) mg/dL Calcium 9.6 (8.4-10.2) mg/dL Total Bilirubin 0.50 (0.2-1.3) mg/dL AST 120 H (14-36) U/L ALT 85 H (0-35) U/L Alkaline Phosphatase 86 (38-126) U/L Serum Total Protein 7.1 (6.3-8.2) g/dL Albumin 4.2 (3.5-5.0) g/dL Lipase 78 (23-300) U/L Urine Color (Yellow) Urine Appearance (Clear) Urine pH (4.6-8.0) Ur Specific [place] (1.005-1.030) Urine Protein (Negative) Urine Glucose (UA) (Negative) mg/dL Urine Ketones (Negative) Urine Blood (Negative) Urine Nitrite (Negative) Urine Bilirubin (Negative) Urine Urobilinogen (0.2) mg/dL Ur Leukocyte Esterase (Negative) U Hyaline Cast (Auto) (0-2) /LPF Urine Microscopic RBC (0-5) /HPF Urine Microscopic WBC (0-5) /HPF Ur Epithelial Cells (None Seen) /HPF Urine Bacteria (None Seen) /HPF Urine Culture Reflexed (NO) Urine HCG, Qual NEGATIVE (NEGATIVE) 08/08/23 Range/Units 05:16 WBC (4.0-10.5) x10^3/uL RBC (4.1-5.4) x10^6/uL Hgb (12.0-16.0) g/dL Hct (35-47) % MCV (78-100) fL MCH (26-32) pg MCHC (32-36) g/dL RDW (11.5-14.0) % Plt Count (150-450) x10^3/uL MPV (7.5-11.0) fL Gran % (36.0-66.0) % Immature Gran % (Auto) (0.00-0.4) % Nucleat RBC Rel Count (0.00-0.1) % Eos # (Auto) (0-0.5) x10^3/uL Immature Gran # (Auto) (0.00-0.03) x10^3u/L Absolute Lymphs (auto) (1.0-4.6) x10^3/uL Absolute Monos (auto) (0.0-1.3) x10^3/uL Absolute Nucleated RBC (0.00-0.01) x10^3u/L Lymphocytes % (24.0-44.0) % Monocytes % (0.0-12.0) % Eosinophils % (0.00-5.0) % Basophils % (0.0-0.4) % Absolute Granulocytes (1.4-6.9) x10^3/uL Basophils # (0-0.4) x10^3/uL Sodium (135-145) mmol/L Potassium (3.5-5.1) mmol/L Chloride (98-107) mmol/L Carbon Dioxide (22-30) mmol/L Anion Gap (5-15) MEQ/L BUN (7-17) mg/dL Creatinine (0.52-1.04) mg/dL Estimated GFR ML/MIN Glucose (74-106) mg/dL Calcium (8.4-10.2) mg/dL Total Bilirubin (0.2-1.3) mg/dL AST (14-36) U/L ALT (0-35) U/L Alkaline Phosphatase (38-126) U/L Serum Total Protein (6.3-8.2) g/dL Albumin (3.5-5.0) g/dL Lipase (23-300) U/L Urine Color Yellow (Yellow) Urine Appearance Cloudy A (Clear) Urine pH 7.0 (4.6-8.0) Ur Specific [place] 1.015 (1.005-1.030) Urine Protein Negative (Negative) Urine Glucose (UA) Negative (Negative) mg/dL Urine Ketones Negative (Negative) Urine Blood Negative (Negative) Urine Nitrite Negative (Negative) Urine Bilirubin Negative (Negative) Urine Urobilinogen 0.2 (0.2) mg/dL Ur Leukocyte Esterase Small A (Negative) U Hyaline Cast (Auto) NONE SEEN (0-2) /LPF Urine Microscopic RBC 3-5 (0-5) /HPF Urine Microscopic WBC 11-20 A (0-5) /HPF Ur Epithelial Cells Moderate A (None Seen) /HPF Urine Bacteria Rare A (None Seen) /HPF Urine Culture Reflexed YES (NO) Urine HCG, Qual (NEGATIVE) - Progress Progress: improved <DAVID TONG - Last Filed: 08/08/23 06:36> <ARIANA THOMPSON - Last Filed: 08/08/23 07:53> - Progress Progress Note: 08/08/23 06:52 27-year-old is evaluated for right flank pain. Patient has history of recurrent UTIs and kidney stones. He is afebrile. Given fluids and symptomatic treatment. She has UTI, given a dose of Rocephin. She has normal white count, rest of workup is pending, care is transferred to Dr. Thompson at end of my shift for reevaluation and final disposition (DAVID TONG) 08/08/23 07:[address] scan of the abdomen pelvis was interpreted by the radiologist. I reviewed the impression. Impression straits there is a 1 mm right UVJ ureteral stone without obstructive uropathy. There is normal appendix and fecal stasis is present. (ARIANA THOMPSON) Medical Desision Making - Diagnostic Testing Diagnostic test were ordered, analyzed, and reviewed by me: Yes Radiological Interpretation: Reviewed by me, Teleradiologist Report - Risk of complications The pt has a mod risk of morbidity or mortality based on: Need for prescription drug management <ARIANA THOMPSON - Last Filed: 08/08/23 07:53> <DAVID TONG - Last Filed: 08/08/23 06:36> - Departure Departure Disposition: Home Critical Care Time: No <ARIANA THOMPSON - Last Filed: 08/08/23 07:53> - Departure Clinical Impression: Right ureteral calculus, UTI (urinary tract infection) Condition: Stable Referrals: FABIAN WEST [Primary Care Provider] - Follow up/PCP as directed Additional Instructions: Drink plenty of fluids. Take your antibiotics and other medications as prescribed. If your symptoms worsen, proceed to an emergency department that has urology on staff. However, you may return to our emergency department if needed. Add ibuprofen 600 mg orally with food 3 times a day for the next 5 days. Prescriptions: Hydrocodone/APAP 5/325 [[place] 5/325 mg] 1 each PO Q8H PRN PRN #6 tablet MDD 3 PRN Reason: Pain Tamsulosin HCl 0.4 mg [Flomax 0.4 MG] 0.4 mg PO DAILY #7 cap Cephalexin Mh 500 mg [Keflex 500 mg] 500 mg PO TID #21 cap
[2023-08-08] MEDS ORDERED: ROCEPHIN 2 GM/100 ML NACL 2 GM/100 ML IVPB IV ONE (05:58)
[2023-08-08] MEDS: ROCEPHIN 2 GM/100 ML NACL 2 GM/100 ML IVPB IV ONE (06:01)
[2023-08-08 06:14] LABS: Absolute Neutrophil Ct (ANC) 7.45 x10^3/uL (1.4-6.9); BASOPHIL % 0.3 % (0.0-0.4); Basophil (Absolute #) 0.03 x10^3/uL (0-0.4); Eosinophil % 1.7 % (0.00-5.0); Eosinophil (Absolute #) 0.17 x10^3/uL (0-0.5); Hemoglobin 12.2 g/dL (12.0-16.0); IMMATURE GRAN # 0.02 x10^3u/L (0.00-0.03); IMMATURE GRAN % 0.2 % (0.00-0.4); Lymphocyte (Absolute #) 1.17 x10^3/uL (1.0-4.6); Lymphocytes % 11.6 % (24.0-44.0); Mean Cell Volume 90.9 fL (78-100); Mean Corpuscular Hemoglobin 29.2 pg (26-32); Mean Corpuscular Hgb Concent. 32.1 g/dL (32-36); Mean Platelet Volume 10.7 fL (7.5-11.0); Monocyte (Absolute #) 1.26 x10^3/uL (0.0-1.3); Monocytes % 12.5 % (0.0-12.0); Neutrophil % 73.7 % (36.0-66.0); Platelet Count 228 x10^3/uL (150-450); Red Blood Count 4.18 x10^6/uL (4.1-5.4); Red Cell Distribution Width 12.5 % (11.5-14.0); White Blood Count 10.1 x10^3/uL (4.0-10.5)
[2023-08-08 06:30] LABS: HCG URINE TEST NEGATIVE (NEGATIVE)
[2023-08-08 06:32] LABS: ALBUMIN 4.2 g/dL (3.5-5.0); ANION GAP 9.4 MEQ/L (5-15); BILIRUBIN,TOTAL 0.5 mg/dL (0.2-1.3); Calcium 9.6 mg/dL (8.4-10.2); Creatinine 1 0.71 mg/dL (0.52-1.04); EST GLOMERULAR FILTRATION RATE 120.9 ML/MIN; Total Protein 7.1 g/dL (6.3-8.2)
[2023-08-08 06:37] VITALS: O2SAT 98
[2023-08-08 07:03] VITALS: PULSE 99; RESP 20
[2023-08-08] MEDS ORDERED: Flomax 0.4 MG ONE (07:57)
[2023-08-08 07:59] VITALS: BP 130/80
[2023-08-08] MEDS: Flomax 0.4 MG PO ONE (08:01)
--- NOTE | 2023-08-08 09:20 | XRAY ---
Indication: Right flank pain. Multiple contiguous axial images obtained through the abdomen and pelvis without contrast using renal stone protocol. Comparison: January 12, 2014 Lung bases clear. Heart not enlarged. New 1 mm right UVJ calculus (Image 94, series 4 and image 87, series 602) with minimal hydronephrosis. Inferior left renal calyx demonstrates new 5 mm nonobstructing calculus. No free fluid/air. Noncontrasted stomach and bowel loops appear nonobstructed with normal appendix. Worsening moderate diffuse colonic fecal stasis greatest in right hemicolon. Uterus demonstrates new IUD in situ. Remaining liver, gallbladder, pancreas, spleen, adrenal glands, kidneys, ureters, bladder, uterus, and aorta are unremarkable for noncontrast exam. Osseous structures intact again with minimal levoscoliosis centered at L3. Impression: 1. New 1 mm right UVJ calculus producing minimal obstruction. New 5 mm nonobstructing left renal calculus. 2. Worsening moderate diffuse fecal stasis.
== END 2023-08-08 08:05 | disposition home or self-care (01) ==
LOC: ED 05:01
DX: N20.1 Calculus of ureter (principal); N39.0 Urinary tract infection, site not specified; R10.9 Unspecified abdominal pain; M54.50 Low back pain, unspecified; Z79.891 Long term (current) use of opiate analgesic
CPT/HCPCS: 36000; 36415; 74176; 80053; 81001; 81025; 83690; 85025; 87077; 87086; 87186; 96374; 96375; 99284; J0696; J1885; J2405; A9270-GY

== ENCOUNTER 2024-07-29 11:17 | Day surgery (SDC) | payer OTHER ==
[2024-07-29 11:37] LABS: HCG URINE TEST NEGATIVE (NEGATIVE)
[2024-07-29 11:47] VITALS: RESP 16
[2024-07-29 11:48] LABS: Absolute Neutrophil Ct (ANC) 3.73 x10^3/uL (1.56-6.13); BASOPHIL % 0.6 % (0.1-1.2); Basophil (Absolute #) 0.04 x10^3/uL (0.01-0.08); Eosinophil % 1.2 % (0.7-5.8); Eosinophil (Absolute #) 0.08 x10^3/uL (0.04-0.36); Hemoglobin 13.1 g/dL (11.2-15.7); IMMATURE GRAN # 0.02 x10^3u/L (0.001-0.031); IMMATURE GRAN % 0.3 % (0.001-0.429); Lymphocyte (Absolute #) 2.21 x10^3/uL (1.18-3.74); Lymphocytes % 32.1 % (19.3-51.7); Mean Cell Volume 91.5 fL (79.4-94.8); Mean Corpuscular Hgb Concent. 32.8 g/dL (32.2-35.5); Monocyte (Absolute #) 0.81 x10^3/uL (0.24-0.86); Monocytes % 11.8 % (4.7-12.5); Platelet Count 301 x10^3/uL (182-369); Red Blood Count 4.37 x10^6/uL (3.93-5.22); White Blood Count 6.9 x10^3/uL (3.98-10.04)
[2024-07-29] MEDS ORDERED: CEFOXITIN 2 GM/100 ML NACL IVPB 2 GM/100 ML IVPB IV ONE (11:53)
[2024-07-29] MEDS: CEFOXITIN 2 GM/100 ML NACL IVPB 2 GM/100 ML IVPB IV ONE (11:55)
[2024-07-29] MEDS: Lactated Ringers 1,000 ML IV SCH (11:56)
[2024-07-29] MEDS ORDERED: Sensorcaine 0.25% 10 ML ONE (13:04)
[2024-07-29] MEDS ORDERED: Lactated Ringers 1,000 ML IV ONE (13:04)
[2024-07-29] MEDS ORDERED: BRIDION 200MG/2ML IV ONE (13:05)
[2024-07-29] MEDS ORDERED: Xylocaine-Mpf 2% 5 Ml Vial ONE (13:05)
[2024-07-29] MEDS ORDERED: SUBLIMAZE 100 MCG/2 ML ONE ×2 (13:05→14:31)
[2024-07-29] MEDS ORDERED: propofoL IV ONE (13:05)
[2024-07-29] MEDS ORDERED: dexAMETHasone sodium phosphate ONE (13:05)
[2024-07-29] MEDS ORDERED: TORAdol 30 mg Injection ONE (13:05)
[2024-07-29] MEDS ORDERED: ROCURONIUM BROMIDE IV ONE (13:05)
[2024-07-29] MEDS ORDERED: Zofran 4 MG/2 ML VIAL ONE ×2 (13:05→14:38)
[2024-07-29] MEDS ORDERED: DEXMEDETOMIDINE 80 MCG/20ML-NS IV ONE (13:38)
[2024-07-29] MEDS ORDERED: DILAUDID 0.5 MG/0.5 ML SYRINGE ONE (14:31)
[2024-07-29 15:27] VITALS: TEMP 98.2; O2SAT 100
[2024-07-29 15:42] VITALS: BP 110/75; PULSE 74
--- NOTE | 2024-08-02 08:59 | OP ---
SURGERY DATE/TIME: 07/29/2024 [id number] PREOPERATIVE DIAGNOSIS: Cholecystitis. POSTOPERATIVE DIAGNOSES: 1) Cholecystitis. 2) Umbilical hernia defect measuring 1 cm. PROCEDURES: 1) Laparoscopic cholecystectomy. 2) Primary repair of umbilical hernia defect measuring 1 cm. SURGEON: Kj Silva MD ANESTHESIA: General. ESTIMATED BLOOD LOSS: Minimal. PATIENT CONDITION: Stable. COMPLICATIONS: None. SPECIMEN: Gallbladder. INDICATIONS: The patient is a 28-year-old with typical biliary colic-type symptoms, gallstones on imaging. I discussed with patient risk of infection, bleeding, injury to nearby structure, hernia, failure to resolve symptoms. She elected to proceed with surgery. FINDINGS: A 1 cm umbilical hernia and primary repair with Prolene. Critical view. DESCRIPTION OF PROCEDURE: The patient was brought to the operating room. General anesthesia was induced. Routinely positioned, prepped, and draped. Time-out performed. Received preoperative antibiotic. The Veress needle inserted in the left upper quadrant and pneumoperitoneum established. The abdomen is surveyed, and the umbilicus does have just a 1 cm reducible hernia. The infraumbilical incision is then made and the stalk is dissected off the hernia sac. Then, through the hernia defect, the 11 mm trocar is placed. The right upper quadrant 5 mm trocars x2 are placed. The patient is positioned. The gallbladder retracted. The cystic duct and cystic artery are dissected out. Critical view is clearly obtained. Both are clipped with 5 mm metal clip plant and maintenance technician and then divided. Gallbladder was taken off the liver bed, placed in a specimen bag, and removed through the 11 trocar site. The right upper quadrant reinspected. Clips are in good position. There was good hemostasis. The hernia defect is closed with interrupted 0 Prolene sutures. Umbilical stalk is tacked down with 3-0 Vicryl sutures. The skin was closed with 4-0 Vicryl sutures. Marcaine had been injected in all the incision sites. Steri-Strips and sterile dressings applied and an umbilical sponge. All counts were correct. Patient tolerated the procedure well, was extubated and taken to Recovery in stable condition.
== END 2024-07-29 15:48 | disposition home or self-care (01) ==
LOC: SDC 11:17
PROVIDERS: ATTEND Surgery
DX: K81.9 Cholecystitis, unspecified (principal); K42.9 Umbilical hernia without obstruction or gangrene
CPT/HCPCS: 36415; 81025; 85025; J0694; J1100; J1171; J1885; J2405; J2704; J3010

== ENCOUNTER 2025-01-23 11:45 | Emergency (ER) | payer OTHER ==
[2025-01-23 12:32] VITALS: RESP 18; TEMP 97.9
[2025-01-23 12:54] LABS: BASOPHIL % 0.5 % (0.1-1.2); Basophil (Absolute #) 0.05 x10^3/uL (0.01-0.08); Eosinophil (Absolute #) 0.07 x10^3/uL (0.04-0.36); Hematocrit 42.1 % (34.1-44.9); Hemoglobin 13.3 g/dL (11.2-15.7); IMMATURE GRAN # 0.03 x10^3u/L (0.001-0.031); IMMATURE GRAN % 0.3 % (0.001-0.429); Lymphocyte (Absolute #) 1.77 x10^3/uL (1.18-3.74); Mean Corpuscular Hemoglobin 29.2 pg (25.6-32.2); Mean Corpuscular Hgb Concent. 31.6 g/dL (32.2-35.5); Monocyte (Absolute #) 0.61 x10^3/uL (0.24-0.86); NUCLEATED RBC # 0.00 x10^3u/L (0.00-0.012); NUCLEATED RBC % 0.0 % (0.00-0.2); Platelet Count 360 x10^3/uL (182-369); Red Blood Count 4.55 x10^6/uL (3.93-5.22); White Blood Count 9.7 x10^3/uL (3.98-10.04)
[2025-01-23 12:58] VITALS: O2SAT 99
[2025-01-23] MEDS ORDERED: Sterile H2O 10 ml IJ ONE (13:06)
[2025-01-23] MEDS ORDERED: Compazine 10 MG/2 ML ONE (13:06)
[2025-01-23 13:07] LABS: Calcium 9.4 mg/dL (8.4-10.2); Carbon Dioxide 26.0 mmol/L (22-30); Creatinine 1 0.68 mg/dL (0.52-1.04); EST GLOMERULAR FILTRATION RATE 122.3 ML/MIN; Glucose 105.0 mg/dL (74-106); Potassium 4.1 mmol/L (3.5-5.1)
[2025-01-23] MEDS: Compazine 10 MG/2 ML IV ONE (13:11)
[2025-01-23] MEDS: solu-MEDROL 125 MG, Sterile H2O 10 ml 10 ML IV ONE (13:12)
--- NOTE | 2025-01-23 13:42 | ERPHSYRPT ---
- History of Present Illness Patient Subjective Stated Complaint: Pt. states, "Marlen had a headache for 4 days, I have a history of migraines. This morning I started vomiting with it." Triage Nursing Assessment: Pt. ambulated to room without difficulty, A&Ox3, Skin P/WD, Resp. even unlabored, Gait steady, No neuro defecits, Pupils equal and reqacitve bilaterally Physician History: Headache, onset of symptoms 4 days ago, worse in the last 24 hours, initial pain started in her neck radiating up to her today occipitalScalp to her right eye, she has had headaches similar to this in the past, she had a previous neck injury in the past, she has never had physical therapy, she never had any other therapies for headaches Timing/Duration: day(s) (4) Quality: aching Head Pain Location: occipital Severity of Pain-Max: moderate Severity of Pain-Current: moderate Associated Symptoms: nausea/vomiting Previous symptoms: same symptoms as today Allergies/Adverse Reactions: adhesive tape Allergy (Verified 07/19/24 14:33) Home Medications: Fluoxetine HCl [Prozac] 07/29/24 [History] Hx Tetanus, Diphtheria Vaccination/Date Given: Yes Hx Influenza Vaccination/Date Given: No Hx Pneumococcal Vaccination/Date Given: No Travel Risk - International Travel Have you traveled outside of the country in past 3 weeks: No - Emerging Infectious Disease Are you exhibiting symptoms associated with any current EIDs: No - Past Medical History Pertinent Past Medical History: Yes Neurological History: No Pertinent History ENT History: No Pertinent History Cardiac History: No Pertinent History Respiratory History: No Pertinent History Endocrine Medical History: No Pertinent History Musculoskeletal History: No Pertinent History GI Medical History: No Pertinent History History: No Pertinent History Psycho-Social History: Anxiety Female Reproductive Disorders: No Pertinent History Other Medical History: preeclampsia and electrolyte imbalances with PREVIOUS , frequent UTIs,. kidney stone. Anemia. PCP: Shellie Ruelas NP - Past Surgical History Past Surgical History: Yes Neuro Surgical History: No Pertinent History Cardiac: No Pertinent History Respiratory: No Pertinent History Gastrointestinal: No Pertinent History Genitourinary: No Pertinent History Musculoskeletal: No Pertinent History Female Surgical History: No Pertinent History Other Surgical History: wisdom teeth removed Significant Family History: no pertinent family hx - Female History Hx Last Menstrual Period: has an IUD Hx Now: No - Social History Smoking Status: Never smoker Exposure to second hand smoke: No Drug Use: none - Social Determinants of Health Will the patient participate in the screening: Declined to provide - Nursing Vital Signs Nursing Vital Signs: Initial Vital Signs Temperature 97.9 F 01/23/25 11:46 Pulse Rate 77 01/23/25 11:46 Respiratory Rate 18 01/23/25 11:46 Blood Pressure 137/97 01/23/25 11:46 O2 Sat by Pulse Oximetry 98 01/23/25 11:46 Pain Scale Pain Intensity 6 - Physical Exam General Appearance: no apparent distress Eye Exam: PERRL/EOMI Ears, Nose, Throat Exam: normal ENT inspection, moist mucous membranes Neck Exam: normal inspection, supple, full range of motion, No meningismus Respiratory Exam: normal breath sounds, lungs clear Cardiovascular Exam: regular rate/rhythm, normal heart sounds Gastrointestinal/Abdominal Exam: soft, No tenderness, No distention Back Exam: normal inspection, normal range of motion Mental Status Exam: alert, oriented x 3, cooperative nurse head Exam: normal speech, PERRL, No facial droop Coordination/Gait Exam: normal cerebellar function Motor/Sensory Exam: no motor deficit, no sensory deficit Skin Exam: normal color, warm, dry, No rash SpO2 Interpretation: normal SpO2: 99 Ordered Tests: Active Orders 24 hr Category Date Time Status BMP Stat Lab 01/23/25 12:50 Completed CBC W DIFF Stat Lab 01/23/25 12:50 Completed Medication Summary Discontinued Medications Generic Name Dose Route Start Last Admin Trade Name Freq PRN Reason Stop Dose Admin Methylprednisolone Sodium 0 mg 01/23/25 12:40 01/23/25 13:12 Succinate 125 mg/ Sterile IV 01/23/25 12:41 125 mg Water 10 ml STAT ONE Administration Sodium Chloride 1,000 mls @ 999 mls/hr 01/23/25 12:40 01/23/25 14:24 Sodium Chloride 0.9% 1000 Ml IV 01/23/25 13:40 Infused .Q1H1M STA Infusion Sodium Chloride Confirm 01/23/25 13:07 Sodium Chloride 0.9% 1000 Ml Administered 01/23/25 13:08 Dose 1,000 mls @ ud .ROUTE .STK-MED ONE Methylprednisolone Sodium Succinate Confirm 01/23/25 13:06 Methylprednis Sod Succ 125 Mg/2 Ml Vial Administered 01/23/25 13:07 Dose 125 mg .ROUTE .STK-MED ONE Prochlorperazine Edisylate 5 mg 01/23/25 12:40 01/23/25 13:11 Prochlorperazine Edisylate 10 Mg/2 Ml Vial IV 01/23/25 12:41 5 mg STAT ONE Administration Prochlorperazine Edisylate Confirm 01/23/25 13:06 Prochlorperazine Edisylate 10 Mg/2 Ml Vial Administered 01/23/25 13:07 Dose 10 mg .ROUTE .STK-MED ONE Sterile Water Confirm 01/23/25 13:06 Water For Injection,Sterile 10 Ml Vial Administered 01/23/25 13:07 Dose 10 ml IJ .STK-MED ONE Lab/Rad Data: Laboratory Result Diagrams 01/23/25 12:50 01/23/25 12:50 Laboratory Results 01/23/25 01/23/25 Range/Units 12:50 12:50 WBC 9.7 (3.98-10.04) x10^3/uL RBC 4.55 (3.93-5.22) x10^6/uL Hgb 13.3 (11.2-15.7) g/dL Hct 42.1 (34.1-44.9) % MCV 92.5 (79.4-94.8) fL MCH 29.2 (25.6-32.2) pg MCHC 31.6 L (32.2-35.5) g/dL RDW 12.0 (11.7-14.4) % Plt Count 360 (182-369) x10^3/uL MPV 9.8 (9.4-12.3) fL Gran % 74.0 H (34.0-71.1) % Immature Gran % (Auto) 0.3 (0.001-0.429) % Nucleat RBC Rel Count 0.0 (0.00-0.2) % Eos # (Auto) 0.07 (0.04-0.36) x10^3/uL Immature Gran # (Auto) 0.03 (0.001-0.031) x10^3u/L Absolute Lymphs (auto) 1.77 (1.18-3.74) x10^3/uL Absolute Monos (auto) 0.61 (0.24-0.86) x10^3/uL Absolute Nucleated RBC 0.00 (0.00-0.012) x10^3u/L Lymphocytes % 18.2 L (19.3-51.7) % Monocytes % 6.3 (4.7-12.5) % Eosinophils % 0.7 (0.7-5.8) % Basophils % 0.5 (0.1-1.2) % Absolute Granulocytes 7.18 H (1.56-6.13) x10^3/uL Basophils # 0.05 (0.01-0.08) x10^3/uL Sodium 136 (135-145) mmol/L Potassium 4.1 (3.5-5.1) mmol/L Chloride 105 (98-107) mmol/L Carbon Dioxide 26 (22-30) mmol/L Anion Gap 9.1 (5-15) MEQ/L BUN 12 (7-17) mg/dL Creatinine 0.68 (0.52-1.04) mg/dL Estimated GFR 122.3 ML/MIN Glucose 105 (74-106) mg/dL Calcium 9.4 (8.4-10.2) mg/dL - Progress Progress Note: 01/23/25 13:42 Clinically improved, headache resolved, she received 300 cc of IV fluid, will give 600 cc - Departure Departure Disposition: Home Clinical Impression: Headache Qualifiers: Headache type: cervicogenic headache Qualified Code(s): G44.86 - Cervicogenic headache Condition: Good Critical Care Time: No Referrals: JUAN RUELAS NP [Primary Care Provider, [facility]] - Follow up PCP 10 days Instructions: Headache, Adult (DC)
[2025-01-23 14:46] VITALS: BP 140/87; PULSE 88
== END 2025-01-23 14:51 | disposition home or self-care (01) ==
LOC: ED 11:45
DX: G44.86 Cervicogenic headache (principal); Z79.899 Other long term (current) drug therapy